=== PATIENT | female | born 1955 | race Caucasian/White ===

== ENCOUNTER 2018-01-10 07:30 | Inpatient (IN) | payer BC ==
--- NOTE | 2017-12-30 14:23 | HP ---
AMENDED REPORT NOW INCLUDES COSIGNER DESIGNATION - ESIGNED BEFORE ADJUSTMENT HISTORY AND PHYSICAL: DATE OF ADMISSION/SURGERY: 01/10/18 DATE OF OFFICE VISIT: 12/28/17 ATTENDING SURGEON: Kymberly Fallon MD * (DICTATED BY STEPHIE BLAIR) PROCEDURE: Bilateral total knee arthroplasties. CHIEF COMPLAINT: Bilateral knee pain. HISTORY OF PRESENT ILLNESS: Ms. Merida is a 62-year-old female with bilateral knee pain secondary to end-stage osteoarthritis. She has failed conservative treatment and elected to proceed with bilateral total knee arthroplasties, which is scheduled for 01/10/18. PAST MEDICAL HISTORY: Hypertension, diabetes, and high cholesterol. PAST SURGICAL HISTORY: Cholecystectomy, cataract removal, colonoscopy. CURRENT MEDICATIONS: 1. Meloxicam 15 mg daily. 2. Metformin 500 mg daily. 3. Lisinopril 10 mg daily. 4. Simvastatin 40 mg daily. 5. Multivitamin. 6. Fenofibrate 54 mg daily. ALLERGIES: None. FAMILY HISTORY: Diabetes, heart disease, and cancer. SOCIAL HISTORY: A 62-year-old female. She lives with her . She does not smoke or use drugs. Uses occasional alcohol. REVIEW OF SYSTEMS: A complete 14-point review of systems was reviewed with the patient, positive for diabetes. She denies a history of DVT, PE, hepatitis, HIV , or anesthesia problems. PHYSICAL EXAMINATION GENERAL: She is well developed, well nourished, in no acute distress. VITAL SIGNS: She stands 59 inches tall, weighs 155 pounds. Her blood pressure is 124/76, her heart rate is 72. HEENT: Normocephalic, atraumatic. NECK: Supple. No palpable lymph nodes. PULMONARY: Lungs are clear to auscultation bilaterally. CARDIAC: Regular rate and rhythm. Strong S1, S2. ABDOMEN: Soft, nontender, nondistended. MUSCULOSKELETAL: Bilateral lower extremities: The skin is intact. There are no open wounds or abrasions. There is moderate bilateral joint effusion. Her range of motion is 10 to 120 degrees of flexion with significant patellofemoral crepitus. There is varus deformity of the knees bilaterally, 2+ dorsalis pedis pulses, 5/5 lower extremity strength, and intact sensation. NEUROLOGIC: She is alert and oriented x3. ASSESSMENT AND PLAN: Ms. Merida is a 62-year-old female with bilateral knee pain secondary to end-stage osteoarthritis. She has failed conservative treatment and elected to proceed with bilateral total knee arthroplasties, which is scheduled for 01/10/[address] Fallon has discussed the risks and benefits of the surgery at today's visit and all of her questions were answered. She will follow up 2 weeks after the surgery. STEPHIE BLAIR [id number]/[facility] #: [id number] MTDD
--- NOTE | 2018-03-13 13:12 | HP ---
HISTORY AND PHYSICAL: DATE OF ADMISSION/SURGERY: 03/20/18 DATE OF OFFICE VISIT: 03/13/18 SURGEON: Kymberly Fallon MD * (DICTATED BY STEPHIE BLAIR) PROCEDURES: Bilateral total knee arthroplasties. CHIEF COMPLAINT: Bilateral knee pain. HISTORY OF PRESENT ILLNESS: Ms. Merida is a 63-year-old female with complaints of bilateral knee pain secondary to end-stage osteoarthritis. She has failed conservative treatment and elected to proceed with bilateral total knee arthroplasties. PAST MEDICAL HISTORY: Hypertension, diabetes and high cholesterol. PAST SURGICAL HISTORY: Cholecystectomy, cataract removal, colonoscopy. CURRENT MEDICATIONS: 1. Tramadol 50 mg as needed. 2. Meloxicam 15 mg daily. 3. Metformin. 4. Lisinopril. 5. Simvastatin. 6. Daily multivitamin. ALLERGIES: No known drug allergies. FAMILY HISTORY: Diabetes, heart disease and cancer. SOCIAL HISTORY: She is a 63-year-old female, lives with her . She does not smoke or use drugs. REVIEW OF SYSTEMS: A complete 14-point review of systems was reviewed with the patient. It was positive for diabetes. She denies a history of DVT, PE, hepatitis, HIV, or anesthesia problems. PHYSICAL EXAMINATION GENERAL: She is well developed, well nourished, in no acute distress. VITAL SIGNS: She stands 59 inches tall, weighs 155 pounds. Her blood pressure 98/60, her heart rate is 93. HEENT: Normocephalic, atraumatic. NECK: Supple. No palpable lymph nodes. PULMONARY: The lungs are clear to auscultation bilaterally. CARDIO: Regular rate and rhythm. Strong S1, S2. ABDOMEN: Soft, nontender, nondistended. NEUROLOGICAL: She is alert and oriented x3. MUSCULOSKELETAL: Bilateral lower extremities: The skin is intact. There are no open wounds or abrasions. There are moderate bilateral joint effusions. Range of motion of the knees is 10 to 120 degrees bilaterally with patellofemoral crepitus. There is varus alignment bilaterally and some tenderness over the medial joint lines of both knees. 2+ dorsalis pedis pulses , intact sensation. Her lower extremity muscle group strengths are intact at 5/ 5. ASSESSMENT AND PLAN: Ms. Merida is a 63-year-old female with end-stage osteoarthritis of the bilateral knees. She has elected to proceed with bilateral total knee arthroplasties. The surgery is scheduled for 03/20/[address] Fallon discussed the risks and benefits of the surgery at today's visit and all of her questions were answered. She will follow up with Dr. Fallon 2 weeks after the surgery. STEPHIE BLAIR [id number]/[facility] #: [id number] AYDEE
[2018-03-20] MEDS ORDERED: Tranexamic Acid 1,000 MG in NS 0.9% 50 ML* (outpatient use) IV SCH ×4
--- OUTSIDE RECORDS SUMMARY | 2018-03-20 05:55 | XMS REPORT ---
:1955 External Reference #:[id number] Author Organization [employer] Address [address] [place] [address] [place] [address] Phone [phone] Care Team Providers Name Role Phone Gael Lund MD Primary Care Physician Unavailable Payers Type Date Identification Numbers Payment Provider Subscriber Commercial Effective: Policy Number: [employer] Ambrose Peterson 2017 [id number] PayID: [id number] [address] [address] [place] [address] Problems Date Description Provider Status Onset: 07/29/2017 Localized, primary osteoarthritis Kymberly Fallon M.D. 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 needed for pain Meloxicam Active Tablets 15mg 30tabs 1 by M25.461 Kymberly 018 mouth Vasyl, every day M.D. Metformin HCL Active Unknown 000 Lisinopril Active Unknown 000 Simvastatin Active Unknown 000 Multivitamin Active Unknown Adult 000 Sulfamethoxazol Hx Tablets 800-160mg 6tabs take one Kymberly e/Trimethoprim 018 - tab by Vasyl DS mouth M.D. 018 twice a day for 3 days Cipro Hx Tablets 250mg 6tabs take one Kymberly 018 - tab twice Vasyl, a day for M.D. 018 three days Vital Signs Date Vital Result Comment 03/13/2018 Height 59 inches 4'11" Weight 160.00 lb Heart Rate 93 /min BP Systolic 98 mmHg BP Diastolic 60 mmHg Respiratory Rate 18 /min Body Temperature 98.2 F Pain Level 5 BMI (Body Mass Index) 32.3 kg/m2 12/28/2017 Height 59 inches 4'11" Weight 155.00 lb Heart Rate 72 /min BP Systolic 124 mmHg BP Diastolic 76 mmHg Respiratory Rate 16 /min Body Temperature 97.2 F Pain Level 5 BMI (Body Mass Index) 31.3 kg/m2 11/04/2017 Height 59 inches 4'11" Weight 162.00 lb Heart Rate 96 /min BP Systolic 144 mmHg BP Diastolic 70 mmHg BMI (Body Mass Index) 32.7 kg/m2 07/29/2017 Height 59 inches 4'11" Weight 168.00 lb Heart Rate 76 /min Respiratory Rate 14 /min Body Temperature 98.4 F Pain Level 4 BMI (Body Mass Index) 33.9 kg/m2 Results Test Date Test Result H/L Range Note Urinalysis Profile 12/28/2017 Urine Color Yellow Urine Appearance Cloudy Urine Specific Lyman 1.020 1.010-1.030 Urine pH 6.0 5-9 Urine Urobilinogen Negative Negative Urine Ketones Negative Negative Urine Protein Negative Negative Urine Leukocytes Trace Negative Urine Blood Negative Negative Urine Nitrite Positive Negative Urine Bilirubin Negative Negative Urine Glucose Negative Negative Urine White Blood Cell 1+(6-10/hpf) Absent Urine Red Blood Cell Absent Absent Urine Bacteria 1+ Absent Urine Squamous Epithelial Cell Present Absent CBC Auto Diff 12/28/2017 White Blood Count 7.6 10^3/uL 3.5-10.8 Red Blood Count 4.60 10^6/uL 4.00-5.40 Hemoglobin 14.1 g/dL 12.0-16.0 Hematocrit 40 % 35-47 Mean Corpuscular Volume 87 fL 80-97 Mean Corpuscular Hemoglobin 31 pg 27-31 Mean Corpuscular HGB Conc 35 g/dL 31-36 Red Cell Distribution Width 13 % 10.5-15 Platelet Count 254 10^3/uL 150-450 Mean Platelet Volume 8.8 um3 7.4-10.4 Abs Neutrophils 4.7 10^3/uL 1.5-7.7 Abs Lymphocytes 2.1 10^3/uL 1.0-4.8 Abs Monocytes 0.5 10^3/uL 0-0.8 Abs Eosinophils 0.2 10^3/uL 0-0.6 Abs Basophils 0.1 10^3/uL 0-0.2 Abs Nucleated RBC 0 10^3/uL Granulocyte % 61.8 % 38-83 Lymphocyte % 27.8 % 25-47 Monocyte % 7.1 % High 0-7 Eosinophil % 2.5 % 0-6 Basophil % 0.8 % 0-2 Nucleated Red Blood Cells % 0 Comp Metabolic Panel 12/28/2017 Sodium 142 mmol/L 135-145 Potassium 3.8 mmol/L 3.5-5.0 Chloride 105 mmol/L 101-111 Co2 Carbon Dioxide 29 mmol/L 22-32 Anion Gap 8 mmol/L 2-11 Glucose 122 mg/dL High 70-100 Blood Urea Nitrogen 15 mg/dL 6-24 Creatinine 0.55 mg/dL 0.51-0.95 BUN/Creatinine Ratio 27.3 High 8-20 Calcium 9.5 mg/dL 8.6-10.3 Total Protein 6.8 g/dL 6.4-8.9 Albumin 4.5 g/dL 3.2-5.2 Globulin 2.3 g/dL 2-4 Albumin/Globulin Ratio 2.0 1-3 Total Bilirubin 0.70 mg/dL 0.2-1.0 Alkaline Phosphatase 54 U/L 34-104 Alt 13 U/L 7-52 Ast 12 U/L Low 13-39 Egfr Non- 112.4 >60 Egfr 136.0 >60 1 Type & Screen 12/28/2017 Patient Blood Type O Positive Antibody Screen NEGATIVE Inr/Protime 12/28/2017 Inr 0.92 0.77-1.02 Laboratory test finding 12/28/2017 Partial Thrombo 28.4 seconds 26.0- 36.3 Time PTT Urine Culture And 12/28/2017 Urine Culture SEE RESULT BELOW 2 Sensitivities 1 Because ethnic data is not always readily available, this report includes an eGFR for both -Americans and non- Americans. The National Kidney Disease Education Program (NKDEP) does not endorse the use of the MDRD equation for patients that are not between the ages of 18 and 70, are , have extremes of body size, muscle mass, or nutritional status, or are non- or non-. According to the National Kidney Foundation, irrespective of diagnosis, the stage of the disease is based on the level of kidney function: Stage Description GFR(mL/min/1.73 m(2)) 1 Kidney damage with normal or decreased GFR 90 2 Kidney damage with mild decrease in GFR 60-89 3 Moderate decrease in GFR 30-59 4 Severe decrease in GFR 15-29 5 Kidney failure <15 (or dialysis) 2 SEE RESULT BELOW Name: GILMAR PETERSON : [address]: Kymberly Fallon MD Acct: [id number] Unit: [id number] AGE: 62 Location: [facility] Re12/28/17 SEX: F Status: REG REF SPEC: [id number] SANGEETA: 12/28/17-[address] [facility] [address]: Kymberly Fallon MD REQ: [id number] RECD: 12/28/17-0543 STATUS: BROCK POWELL DR: Gael Lund MD _ SOURCE: URINE SPDESC: ORDERED: Urine Culture QUERIES: Urine Source: Clean Catch Procedure Result Reported Site Urine Culture Final 12/30/17- 907 ML Organism 1 ESCHERICHIA COLI [place] Count >100,000 (Many) CFU/ML 1. ESCHERICHIA COLI M.I.C. RX --------- ------ Ampicillin <=2 S Cefazolin <=4 S Cefepime <=1 S Ceftriaxone <=1 S Ciprofloxacin <=0.25 S Gentamicin <=1 S Levofloxacin <=0.12 S Meropenem <=0.25 S Nitrofurantoin <=16 S Tetracycline <=1 S Pipercillin/Tazobactam <=4 S Trimethoprim/Sulfamethoxazole <=20 S Amoxicillin/Clavulanic Acid <=2 S Aztreonam <=1 S Contact the Microbiology Department for any additional antibiotic reporting. * [facility] - Main Lab . END OF REPORT DEPARTMENT OF PATHOLOGY, [address] [place] [address] Andrew Alicea M.D. Director [facility] # [id number] Procedures Description No Information Encounters Type Date Location Provider [facility] E/M Dx Office Visit 11/04/2017 1:45p [facility] Fallon M.D. 65130 M17.0 [facility] M25.561 M25.461 M25.562 M25.462 Office Visit 07/29/2017 1:00p [facility] Fallon M.D. 75999 M17.0 [facility] M25.561 M25.562 M25.461 M25.462 Plan of Care Future Appointment(s):03/31/2018 10:45 am - Kymberly Fallon M.D. at [facility]03/20/2018 7:30 am - STEPHIE Del Castillo at [facility]03/20/2018 7:30 am - Kymberly Fallon M.D. at [facility]03/13/2018 - Kymberly Fallon M.D.M17.0 Bilateral primary osteoarthritis of kneeFollow up:Follow up: 2 weeks after [id number] Pain in right kneeM25.562 Pain in left knee
[2018-03-20] MEDS ORDERED: Gabapentin CAP(*) 300 MG PO ONE (06:00)
[2018-03-20] MEDS ORDERED: celeCOXIB CAP* 200 MG PO ONE (06:00)
[2018-03-20] MEDS ORDERED: Acetaminophen TAB* 325 MG PO ONE (06:00)
[2018-03-20] MEDS ORDERED: Buffered Lidocaine 0.9% SYRIN* 5 ML/SYR SYRINGE INTRADERM ONE (06:00)
[2018-03-20] MEDS ORDERED: celeCOXIB CAP* 100 MG ONE (06:11)
[2018-03-20] MEDS ORDERED: Acetaminophen TAB* 325 MG ONE (06:12)
[2018-03-20] MEDS ORDERED: ceFAZolin 2 GM PREMIX in ORs 2 GM/50 ML BAG IVPB ONE (06:12)
[2018-03-20] MEDS ORDERED: Gabapentin CAP(*) 300 MG ONE (06:12)
[2018-03-20] MEDS ORDERED: fentaNYL* 50 MCG/ML 2 ML VIAL (100 MCG VIAL) ONE (07:08)
[2018-03-20] MEDS ORDERED: Midazolam* 1 MG/ML 2 ML VIAL (2 MG) ONE ×2 (07:08→08:13)
[2018-03-20] MEDS ORDERED: Bupivacaine 0.5% SDV PF* 30ML VIAL ONE ×2 (07:30→08:14)
[2018-03-20] MEDS ORDERED: Morphine PF AMP (0.5MG/ML)* 5 MG/10 ML AMP ONE (07:43)
[2018-03-20] MEDS ORDERED: diPHENhydraMINE IV* 50 MG/ML 1 ml VIAL (BENADRYL) ONE (08:14)
[2018-03-20] MEDS ORDERED: Bupivacaine-MPF SPINAL* 7.5 MG/ML - 2ML AMP ONE (08:14)
[2018-03-20] MEDS ORDERED: Famotidine IV* 10 MG/ML 2 ML (20 mg) ONE (08:14)
[2018-03-20] MEDS ORDERED: Dexamethasone IV* 4 MG/ML 1 ML (4 MG) ONE (08:14)
[2018-03-20] MEDS ORDERED: ROPIVACAINE 5 MG/ML 30 ML BTL (0.5%) ONE (08:14)
[2018-03-20] MEDS ORDERED: Propofol* 10 MG/ML 20 ML BTL IV PUSH ONE ×4 (08:25→11:05)
[2018-03-20] MEDS ORDERED: Hetastarch 6% in NS* 500 ML IV ONE (08:28)
[2018-03-20] MEDS ORDERED: EPHEDrine (Pressors)* 50 MG/ML VIAL ONE (10:43)
[2018-03-20] MEDS ORDERED: Naloxone* 0.4 MG/ML 1 ML VIAL IV PRN ×2 (10:48→10:49)
[2018-03-20] MEDS ORDERED: fentaNYL* 50 MCG/ML 2 ML VIAL (100 MCG VIAL) IV PRN (10:48)
[2018-03-20] MEDS ORDERED: Nalbuphine* 10 MG/ML 1 ML VIAL IV PRN (10:49)
[2018-03-20] MEDS ORDERED: diPHENhydraMINE IV* 50 MG/ML 1 ml VIAL (BENADRYL) IV PRN (10:49)
[2018-03-20] MEDS ORDERED: Scopolamine 1.5 mg* PATCH TRANSDERM PRN (10:49)
[2018-03-20] MEDS ORDERED: HYDROcodone/ACETAMIN 5-325 MG* 1 TAB PO PRN (10:49)
[2018-03-20] MEDS ORDERED: Ondansetron INJ* 2 MG/ML VIAL IV PRN (10:49)
[2018-03-20] MEDS ORDERED: DiMENhydriNATE IV* 50 MG/ML VIAL IV PUSH PRN (10:49)
[2018-03-20] MEDS ORDERED: Acetaminophen TAB* 325 MG PO PRN (10:49)
[2018-03-20] MEDS ORDERED: PROCHLORPERAZINE INJ 5 MG/ML 2 ML VIAL IV PRN (10:49)
[2018-03-20] MEDS ORDERED: Ondansetron INJ* 2 MG/ML VIAL ONE (11:40)
[2018-03-20] MEDS ORDERED: Bisacodyl SUPP* 10 MG SUPP PR PRN (11:56)
[2018-03-20] MEDS ORDERED: Magnesium Hydroxide LIQ* 30 ML UDC PO PRN (11:56)
[2018-03-20] MEDS ORDERED: Polyethylene Glycol 3350* 17 GM PACKET PO PRN (11:56)
--- NOTE | 2018-03-20 12:59 | RAD ---
HISTORY: s/p B/L TKA's COMPARISONS: July 29, 2017 VIEWS: 4 , frontal views of both knees, lateral views of the left knee and of the right knee FINDINGS: Right: BONE DENSITY: Normal. BONES: The patient is status post right knee arthroplasty. There is no hardware failure or osteolysis. JOINTS: The patient is status post right knee arthroplasty. ALIGNMENT: There is no dislocation. The alignment is anatomic. SOFT TISSUES: Unremarkable. Left: BONE DENSITY: Normal. BONES: The patient is status post left knee arthroplasty. There is no hardware failure or osteolysis. JOINTS: The patient is status post left knee arthroplasty ALIGNMENT: There is no dislocation. The alignment is anatomic. SOFT TISSUES: Unremarkable. OTHER FINDINGS: None. IMPRESSION: STATUS POST BILATERAL KNEE ARTHROPLASTY
--- NOTE | 2018-03-20 14:56 | PN ---
Progress Note - Progress Note Date of Service: 03/20/18 Note: Patient seen and examined at bedside POD 0 s/p bilateral total knee replacements with Dr Fallon earlier today. She is currently resting, feeling well with well controlled knee pain. Denies chest pain, shortness of breath, dizziness or nausea. Bilateral lower extremities with DF/PF intact, DP2+, capillary refill less than two seconds distally and sensation intact distally.
[2018-03-20] MEDS ORDERED: Dextrose 50% Syringe 50 ML* 25 GM/50 ML SYRINGE IV PUSH PRN (16:26)
[2018-03-20] MEDS: ceFAZolin 1 GM in Dextrose (*) 1 GM/50 ML BAG IVPB SCH (16:44)
[2018-03-20] MEDS ORDERED: Warfarin TAB(*) 6 MG PO ONE (17:00)
[2018-03-20] MEDS: HYDROcodone/ACETAMIN 5-325 MG* 1 TAB PO PRN ×2 (17:00→21:05)
[2018-03-20] MEDS: Atorvastatin* 20 MG TAB PO SCH (17:31)
[2018-03-20] MEDS: Insulin LISPRO* 1 UNITS UNIT SUBCUT SCH ×2 (17:31→21:08)
--- NOTE | 2018-03-20 20:09 | CONS ---
CC: Dr. Fallon * CONSULTATION REPORT: DATE OF CONSULT: 03/20/18 PATIENT OF: Dr. Kymberly Fallon. CONSULTED TO: Dr. Ani Fontenot. CHIEF COMPLAINT: Bilateral knee pain. REASON FOR CONSULT: Medical comanagement. HISTORY OF PRESENT ILLNESS: Ms. Merida is a 63-year-old female with past medical history significant for hypertension, type 2 diabetes mellitus, and hyperlipidemia, who has been evaluated by the [facility] in consideration for knee replacement. The patient has had bilateral knee osteoarthritis for a number of years, for which she had multiple conservative measures, which unfortunately failed secondary to end-stage osteoarthritis. She was found to be a good candidate for bilateral knee replacement for which she was scheduled on a later date. She was taken to the operating room earlier today where she had bilateral knee replacement by Dr. Fallon. She was discharged in a stable condition from the recovery room back to the surgical stay unit and we were asked to see the patient to manage her other medical issues. The patient at the time of consultation denies any chest pain, headache , shortness of breath, or abdominal pain. She had slight tachycardia, but denies any symptoms for which she was given a liter of lactated Ringer's bolus and another liter has been ordered shortly after this consult. She is tolerating clear liquid diet and denies any nausea, vomiting, or abdominal pain. PAST MEDICAL HISTORY: As mentioned above, significant for: 1. Hypertension. 2. Type 2 diabetes mellitus. 3. Hyperlipidemia. 4. Osteoarthritis. PAST SURGICAL HISTORY: Significant for: 1. Cholecystectomy. 2. Cataract extraction. 3. Bilateral knee arthroplasty today. CURRENT MEDICATIONS: Her medications at home include: 1. Fenofibrate 54 mg p.o. q.a.m. 2. Lisinopril 10 mg p.o. daily. 3. Metformin 500 mg p.o. daily. 4. Simvastatin 40 mg p.o. q.p.m. 5. Ultram 50 mg p.o. q.6 hours as needed for pain. 6. Tylenol 650 mg p.o. q.4 hours as needed for pain or fever. 7. Colace 100 mg p.o. b.i.d. ALLERGIES: She is allergic to SULFONAMIDE ANTIBIOTICS. FAMILY HISTORY: Reviewed and noncontributory. SOCIAL HISTORY: The patient is a nonsmoker, who drinks alcohol rarely. She lives at home with her , who is healthcare proxy and she wishes to be a full code. REVIEW OF SYSTEMS: See HPI. Otherwise, 12-point review of systems was reviewed and they were essentially negative. PHYSICAL EXAM: General: She is a pleasant middle-aged female, appears comfortable and in no acute distress or discomfort at the time of consultation. Vitals revealed temperature of 97.3, pulse of 110, blood pressure 120/64, respirations of 16 with O2 sat of 98% on 3 L oxygen. HEENT: Head is normocephalic, atraumatic. Sclerae anicteric. PERRLA. EOMs intact. Oropharynx is pink and moist. Neck: Supple. Trachea midline. No cervical adenopathy or thyromegaly. Lungs: Clear to auscultation bilaterally. Heart: Regular rate and rhythm. Normal S1 and S2 without rubs, murmurs, or gallops. Back: With normal curvature. No CVA tenderness. Breast Exam: Deferred at this time. Abdomen: Soft, nontender, and nondistended. There are no hernias, masses, or hepatosplenomegaly. Extremities: Without cyanosis, clubbing, or edema. Neurologic: She is awake, alert, and oriented x3. Tongue is midline and sensation is intact throughout. Rectal Exam: Deferred at this time. IMPRESSION: A 63-year-old female with past medical history significant for hypertension, diabetes mellitus, hyperlipidemia, who is postop day #0, status post bilateral knee arthroplasty, who was admitted under orthopedic services and we were asked for consultation regarding medical comanagement for the following. ASSESSMENT AND PLAN: 1. Bilateral knee arthroplasty. Management per ortho team. The patient appears to be comfortable and her pain is well controlled at this time. She is getting Lovenox bridging to warfarin with daily INR check per orthopedic team. 2. Hypertension. I will continue her lisinopril as prescribed. She appears to be normotensive at the present time. She has slight tachycardia without any symptoms that appear to be likely due to dehydration. I will give her another bolus of 1 L of LR and recheck her pulse later. Her I's and O's had been rechecked and she had estimated blood loss of approximately 500 cc in the operating room. We will await her CBC tomorrow to check for H and H level. 3. Diabetes mellitus. The patient is on metformin at home which I will hold for now and will be covered with lispro per sliding scale with glucose checks q.a.c. and q.h.s. 4. Hyperlipidemia. We will continue her statin therapy. 5. DVT prophylaxis. She is on Lovenox being bridged to Coumadin. 6. Code status. She wishes to be a full code. TIME SPENT: Approximately 45 minutes was spent on consultation of this patient , for which greater than 50% of this time taking history and performing physical exam. I went on and discussed the case with my attending, who agreed to plan of care and will follow accordingly. Thank you for this consultation. STEPHIE THOMSON [id number]/[facility] #: [id number] MTDD
[2018-03-20] MEDS: Docusate CAP* 100 MG PO SCH (21:06)
[2018-03-20] MEDS: Magnesium Hydroxide LIQ* 30 ML UDC PO SCH (21:33)
[2018-03-20] MEDS: Acetaminophen TAB* 325 MG PO SCH (21:33)
[2018-03-21] MEDS: ceFAZolin 1 GM in Dextrose (*) 1 GM/50 ML BAG IVPB SCH ×2 (00:05→08:42)
[2018-03-21] MEDS ORDERED: diPHENhydraMINE PO* 25 MG PO PRN (00:09)
[2018-03-21] MEDS ORDERED: oxyCODONE/Acetamin 5/325 MG* TAB PO PRN (00:09)
[2018-03-21] MEDS ORDERED: Morphine VIAL* 4 MG/ML VIAL (1 ml vial) IV PRN (00:10)
[2018-03-21] MEDS ORDERED: Ondansetron INJ* 2 MG/ML VIAL IV PRN (00:12)
[2018-03-21] MEDS ORDERED: Ondansetron TAB* 4 MG PO PRN (00:12)
[2018-03-21] MEDS: oxyCODONE/Acetamin 5/325 MG* TAB PO PRN ×5 (00:14→21:13)
[2018-03-21] MEDS: Acetaminophen TAB* 325 MG PO SCH ×3 (05:04→21:31)
[2018-03-21 05:26] LABS: Hematocrit 28 % (35-47); Hemoglobin 9.9 g/dl (12.0-16.0); Mean Platelet Volume 8.1 um3 (7.4-10.4); Platelet Count 189 10^3/ul (150-450)
[2018-03-21 05:30] LABS: INR 1.16 (0.77-1.02)
[2018-03-21 05:46] LABS: EGFR Non-African American 116.9 (>60)
[2018-03-21] MEDS: traMADol TAB* 50 MG PO PRN ×2 (06:09→13:15)
[2018-03-21] MEDS: oxyCODONE TAB* 5 MG TAB PO PRN ×4 (07:23→23:48)
--- NOTE | 2018-03-21 07:47 | PN ---
Progress Note - Progress Note Date of Service: 03/21/18 SOAP: Subjective: resting in bed. Pain controlled with current pain regimen. Denies SOB/calf pain Objective: Laboratory Last Values Hgb 9.9 g/dl (12.0-16.0) L 03/21/18 05:18 Hct 28 % (35-47) L 03/21/18 05:18 Plt Count 189 10^3/ul (150-450) 03/21/18 05:18 MPV 8.1 um3 (7.4-10.4) 03/21/18 05:18 INR (Anticoag Therapy) 1.16 (0.77-1.02) H 03/21/18 05:18 Sodium 137 mmol/L (135-145) 03/21/18 05:18 Potassium 3.8 mmol/L (3.5-5.0) 03/21/18 05:18 Chloride 101 mmol/L (101-111) 03/21/18 05:18 Carbon Dioxide 32 mmol/L (22-32) 03/21/18 05:18 Anion Gap 4 mmol/L (2-11) 03/21/18 05:18 BUN 14 mg/dL (6-24) 03/21/18 05:18 Creatinine 0.53 mg/dL (0.51-0.95) 03/21/18 05:18 Est GFR ( Amer) 141.4 (>60) 03/21/18 05:18 Est GFR (Non-Af Amer) 116.9 (>60) 03/21/18 05:18 BUN/Creatinine Ratio 26.4 (8-20) H 03/21/18 05:18 Glucose 152 mg/dL (70-100) H 03/21/18 05:18 POC Glucose (mg/dL) 151 mg/dL (70-100) H 03/20/18 20:59 Calcium 8.1 mg/dL (8.6-10.3) L 03/21/18 05:18 Vital Signs Temp Pulse Resp BP Pulse Ox 98.5 F 107 18 121/62 93 03/21/18 03:28 03/21/18 03:28 03/21/18 07:23 03/21/18 03:28 03/21/18 03:28 incision: c/d/i PE: able to dorsi flex/plantar flex/ 2+DP pulses/ intact sensation B/L LE Assessment: s/p B/L TKA's; POD #1 Plan: 1) PT/OT- WBAT 2) Ancef for 24 hours post-op 3) Coumadin/Lovenox/SCD's for DVT prophylaxis 4) Hospitalist co-managing
[2018-03-21] MEDS: Insulin LISPRO* 1 UNITS UNIT SUBCUT SCH ×4 (08:59→21:07)
[2018-03-21] MEDS: Lisinopril TAB* 10 MG PO SCH (09:00)
[2018-03-21] MEDS: Docusate CAP* 100 MG PO SCH ×2 (09:00→19:33)
[2018-03-21] MEDS: Magnesium Hydroxide LIQ* 30 ML UDC PO SCH ×2 (09:00→19:33)
[2018-03-21] MEDS ORDERED: metFORMIN* 500 MG TAB PO SCH (09:00)
--- NOTE | 2018-03-21 09:05 | PN ---
Subjective Date of Service: 03/21/18 Interval History: Pt with significant pain in bilateral knees, however is improved with medication administration. Endorses nausea and vomiting. Denies shortness of breath, chest pain, palpitation, dizziness, numbness or tingling in extremities. Did report transient tingling just below knee cap, however has resolved. Objective Active Medications: Acetaminophen (Tylenol Tab*) 975 mg PO Q8HR [facility] Last Admin: 03/21/18 05:04 Dose: Not Given Atorvastatin Calcium (Lipitor*) 20 mg PO QPM [facility] Last Admin: 03/20/18 17:31 Dose: 20 mg Bisacodyl (Dulcolax Supp*) 10 mg MI DAILY PRN PRN Reason: constipation Cyclobenzaprine HCl (Flexeril Tab*) 10 mg PO TID PRN PRN Reason: SPASMS Dextrose (D50w Syringe 50 Ml*) 12.5 gm IV PUSH .FOR FS < 60 - SS PRN PRN Reason: FS < 60 Diphenhydramine HCl (Benadryl Po*) 25 mg PO Q6H PRN PRN Reason: itching Docusate Sodium (Colace Cap*) 100 mg PO BID [facility] Last Admin: 03/20/18 21:06 Dose: 100 mg Enoxaparin Sodium (Lovenox(*)) 40 mg SUBCUT Q24H [facility] Lactated Ringer's (Lactated Ringers 1000 Ml Bag*) 1,000 mls @ 100 mls/hr IV PER RATE [facility] Last Admin: 03/21/18 08:41 Dose: 100 mls/hr Insulin Human Lispro (Humalog*) 0 units SUBCUT [facility]; Protocol Last Admin: 03/20/18 21:08 Dose: 3 units Lactulose (Lactulose*) 30 ml PO Q6H PRN PRN Reason: constipation Lisinopril (Prinivil Tab*) 10 mg PO QAM [facility] Magnesium Hydroxide (Milk Of Magnesia Liq*) 30 ml PO BID [facility] Last Admin: 03/20/18 21:33 Dose: 30 ml Magnesium Hydroxide (Milk Of Magnesia Liq*) 30 ml PO Q6H PRN PRN Reason: constipation Morphine Sulfate (Morphine Vial*) 2 mg IV Q2H PRN PRN Reason: PAIN - SEVERE Naloxone HCl (Narcan*) 0.08 mg IV Q2M PRN PRN Reason: severe induced resp depression Stop: 03/21/18 10:48 Ondansetron HCl (Zofran Inj*) 4 mg IV Q6H PRN PRN Reason: nausea Ondansetron HCl (Zofran Tab*) 4 mg PO Q6H PRN PRN Reason: NAUSEA Oxycodone HCl (Roxycodone Tab*) 10 mg PO Q4H PRN PRN Reason: SEVERE PAIN Last Admin: 03/21/18 07:23 Dose: 10 mg Oxycodone/Acetaminophen (Percocet 5/325 Tab*) 1 tab PO Q4H PRN PRN Reason: PAIN Oxycodone/Acetaminophen (Percocet 5/325 Tab*) 2 tab PO Q4H PRN PRN Reason: PAIN Last Admin: 03/21/18 05:22 Dose: 2 tab Pharmacy Profile Note (Scopolamine Patch Remove*) 1 note PATCH OFF .AFTER 72 HOURS PRN PRN Reason: nausea Pharmacy Profile Note (Coumadin Daily Reminder*) 1 note FOLLOW UP 1700 SMITH Polyethylene Glycol/Electrolytes (Miralax*) 17 gm PO DAILY PRN PRN Reason: Constipation Scopolamine (Transderm-Scop 1.5 Mg Patch*) 1 patch TRANSDERM Q72H PRN PRN Reason: nausea Tramadol HCl (Ultram*) 50 mg PO Q6H PRN PRN Reason: PAIN Last Admin: 03/21/18 06:09 Dose: 50 mg Warfarin Sodium (Coumadin Tab(*)) 6 mg PO ONCE@1700 SMITH; Protocol Stop: 03/21/18 17:01 Vital Signs - 8 hr 03/21/18 03/21/18 03/21/18 02:14 03:28 05:22 Temperature 98.5 F Pulse Rate 107 Respiratory 20 16 18 Rate Blood Pressure 121/62 (mmHg) O2 Sat by Pulse 93 Oximetry 03/21/18 03/21/18 03/21/18 06:09 07:23 07:30 Temperature 98.2 F Pulse Rate 110 Respiratory 18 18 16 Rate Blood Pressure 135/65 (mmHg) O2 Sat by Pulse 97 Oximetry 03/21/18 03/21/18 08:00 08:58 Temperature Pulse Rate Respiratory 16 18 Rate Blood Pressure (mmHg) O2 Sat by Pulse 97 Oximetry Oxygen Devices in Use Now: None, Nasal Cannula Eyes: No Scleral Icterus Ears/Nose/Mouth/Throat: NL Teeth, Lips, Gums, Mucous Membranes Moist Neck: NL Appearance and Movements; NL JVP Respiratory: Symmetrical Chest Expansion and Respiratory Effort, Clear to Auscultation Cardiovascular: NL Sounds; No Murmurs; No JVD, No Edema, - - Tachycardic to low 100s. Regular rhythm Abdominal: NL Sounds; No Tenderness; No Distention Lymphatic: No Cervical Adenopathy Skin: No Rash or Ulcers Neurological: Alert and Oriented x 3, NL Sensation, NL Muscle Strength and Tone , - - 2+ DP and PT pulses bilaterally. Dorsiflexion/plantar fexion intact Nutrition: Taking PO's Result Diagrams: 03/21/18 05:18 03/21/18 05:18 Assess/Plan/Problems-Billing Assessment: Ms Merida is a 63 year old female with a PMH HTN, DM, HLD s/p bilateral knee replacement with Dr. Fallon yesterday. Hospitalist team consulting. - Patient Problems (1) History of total bilateral knee replacement Current Visit: Yes Status: Acute Code(s): Z96.653 - PRESENCE OF ARTIFICIAL KNEE JOINT, BILATERAL SNOMED Code(s): 6372508647668 Comment: - Plan per ortho, primary team - Continue pain control with PRN percocet, roxycodone, ultram or morophine - Continue bowel regimen - Continue trending H/H: 9 today - Pt has been mildly tachcardic since her procedure yesterday, likely secondary to pain and volume loss (surgical + vomiting). Pt is taking PO and received multiple liters of fluid yesterday, but continue to support with LR @ 125mL/hr - Anticoagulation with coumadin with lovenox bridge (2) Hypertension Current Visit: Yes Status: Acute Code(s): I10 - ESSENTIAL (PRIMARY) HYPERTENSION SNOMED Code(s): 44787886 Comment: - BP well controlled on lisinopril 10mg daily. Last BP 135/65. (3) Diabetes Current Visit: Yes Status: Acute Code(s): E11.9 - TYPE 2 DIABETES MELLITUS WITHOUT COMPLICATIONS SNOMED Code(s): 21490497 Comment: - Glucose < 180. Continue sliding scale lispro. Can consider restarting home metformin when nausea subsided and able to hold POs. (4) DVT prophylaxis Current Visit: Yes Status: Acute Code(s): VMF5337 - SNOMED Code(s): 384395989 Comment: - Coumadin with lovenox bridge (5) Full code status Current Visit: Yes Status: Acute Code(s): Z78.9 - OTHER SPECIFIED HEALTH STATUS SNOMED Code(s): 378562038 Status and Disposition: Plan per primary team, ortho Attending: Ani Fontenot
--- NOTE | 2018-03-21 13:00 | OP ---
DATE OF OPERATION: 03/20/18 - ROOM #343 DATE OF : 57 SURGEON: Kymberly Fallon MD. MASK INSPECTOR: STEPHIE Arana. Ms. Dover did help throughout the procedure with preparation of the leg, wound retraction, manipulation of the knee, and wound closure. ANESTHESIOLOGIST: Dr. Schaffer. ANESTHESIA: Spinal. PRE-OP DIAGNOSIS: Severe end-stage degenerative osteoarthritis of the bilateral knee joints. POST-OP DIAGNOSIS: Severe end-stage degenerative osteoarthritis of the bilateral knee joints. OPERATIVE PROCEDURE: Bilateral total knee arthroplasty. COMPLICATIONS: None. ESTIMATED BLOOD LOSS: 400 cc. SPECIMEN: Bone and cartilage from each knee joint was sent to pathology. TOURNIQUET TIMES: Right knee tourniquet time 46 minutes, left knee tourniquet time 45 minutes. HARDWARE USED: Cemented Arellano [employer]hew total knee arthroplasty hardware. For the right knee, a right 4 narrow Oxinium posterior stabilized Legion femoral component. For the tibia over the right, size 3, Keily II tibial base plate. For the insert, an 11 mm posterior stabilized articular insert, size 3-4 and for the patella, a 29 3-peg all poly patella with 7.5 thickness. For the left knee joint, 2 packages of Simplex bone cement. Posterior Oxinium Legion femoral component. For the tibia, left size 3 tibial base plate, Keily II. For the insert, an 11 mm posterior stabilized articular insert, size 3-4. For the patella, 29 3-peg all poly patella with 7.5 thickness. BRIEF HISTORY/INDICATIONS: Ms. Merida is a 63-year-old female with years of increasingly severe bilateral knee pain. Due to continued pain and decreased quality of life, she elected to undergo bilateral total knee arthroplasty. She failed conservative treatment with antiinflammatories, pain medications, intraarticular injections, and physical therapy. Radiographs showed bone-on- bone arthritis bilaterally. Informed consent was obtained from the patient. She understood the risks of the procedure included, but were not limited to bleeding, infection, damage to nearby structures, continued pain, need for further surgery, bleeding, infection, damage to nearby structures, continued pain, need for further surgery, intraoperative fracture, nerve palsy, hardware failure or loosening, knee stiffness, loss of motion, stroke, heart attack, blood clot, and . She wished to proceed. The patient understood the risk of bilateral total knee arthroplasty with increased risk of infection, blood clot, and knee stiffness. She wished to proceed. INTRAOPERATIVE FINDINGS: Intraoperatively, the patient was noted to have complete end-stage arthritis with full thickness loss of cartilage in the medial and patellofemoral compartments of both knees. Left knee had more of a hypoplastic lateral femoral condyle than the right. Both knees showed significant soft tissue laxity. The patient had recurvatum of both knees before the case. DESCRIPTION OF PROCEDURE: Ms. Merida was identified in the preanesthesia unit. Her bilateral knees were marked as the correct operative site. Informed consent was signed and placed in the chart. The patient was taken to the operating room, placed under spinal anesthesia. A Hopkins catheter was placed. Tourniquet was placed on each side. The bilateral lower extremities were prepped and draped in the usual sterile fashion. Preop time-out was made to correctly identify the patient, side and site. Appropriate perioperative antibiotics were given within 1 hour of incision. The right knee was covered with a half drape and attention was turned to the left knee first. Left knee tourniquet was inflated. A midline incision of 12 cm was made with a 10 blade and carried down to the extensor mechanism. New 10 blade was used to make a standard medial parapatellar arthrotomy. Patella was subluxed laterally. Electrocautery was used to subperiosteally elevate the soft tissue off the superomedial tibia to the mid sagittal plane. The knee was flexed up. The anterior horn of the lateral meniscus and ACL were sharply released. A drill was used to enter the distal femur. Intramedullary distal femoral cutting guide was pinned on the distal femur. Oscillating saw was used to make the distal femoral cut. Next, the external rotation guide was pinned on the distal femur. The distal femur was sized to a size 4. The size 4 multi- cutting jig was pinned on the distal femur. Oscillating saw was used to make the appropriate 4 chamfer cuts. The PCL was completely released and the tibia was subluxed anteriorly. Extramedullary tibial cutting guide was pinned on the proximal tibia. Oscillating saw was used to make the proximal tibial cut perpendicular to the mechanical axis of the tibia. The bone was carefully removed. The knee was brought out into full extension. Medial and lateral ligaments were well balanced. Spacer block had good fit with the knee in full extension. Flexion and extension gaps were well balanced. The knee was flexed up. Lamina spreaders placed both medially and laterally. Any remaining meniscus was carefully removed using electrocautery. Curved osteotome was used to remove any posterior osteophytes. Tibial tray and drop carlito were placed and once again confirmed a satisfactory tibial cut. A size 4 left narrow femoral trial was impacted on to the distal femur and had excellent fit. The box for the posterior stabilized implant was prepared using a reamer and box cut osteotome. Size 3 tibial tray trial with an 11 mm insert trial was placed and the knee was taken through a range of motion. The knee had full extension to 130 degrees of flexion with good patellofemoral tracking. Patella was everted. A 7 mm of patellar bone and cartilage was carefully removed using an oscillating saw. Patella was sized to a size 29. Three peg holes were drilled through the size 29 guide. The 29 trial patella with 7.5 thickness was placed and the knee was taken through a range of motion. The knee had satisfactory patellofemoral tracking. All trials were carefully removed. The tibia was subluxed anteriorly and sized to a size 3. Proximal tibia was prepared using a size 3 keel punch. All bony cut surfaces were copiously irrigated with sterile saline and dried. The final implants were cemented into place, starting with the tibia, followed by the femur and last the patella. The 11 mm insert trial was placed while the knee was brought out into full extension. Tourniquet was turned down at 45 minutes. The knee was copiously irrigated with sterile saline. Electrocautery was used to obtain meticulous hemostasis. The cement was allowed to fully cure. Once the cement had fully cured, the insert trial was removed. Any excess cement was removed from around the capsule and hardware. Final insert chosen was an 11 mm posterior stabilized articular insert size 3-4. This was locked into position on the tibial tray. Stability of the insert was checked and rechecked and noted to be stable. The extensor mechanism was closed using interrupted #1 Vicryl. The rest of the incision was closed in a layered fashion using 0 and 2- 0 Vicryl. Skin was closed using running 3-0 nylon suture. Sterile Xeroform, 4x4's, and Webril were used to cover the incision. Nilay wrap was placed over this. A was used to cover the knee. Attention was turned to the right knee. Right knee tourniquet was inflated and a 12 cm midline incision was made with a 10 blade and carried down to the extensor mechanism. New 10 blade was used to make a standard medial parapatellar arthrotomy. The patella was subluxed laterally. Electrocautery was used to subperiosteally elevate the soft tissue off the superomedial tibia to the mid sagittal plane. The knee was flexed up. The anterior horn of the lateral meniscus and ACL were sharply . Intramedullary distal femoral cutting guide was pinned into position. Oscillating saw was used to make the distal femoral cut. The external rotation guide was pinned on the distal femur. The distal femur was sized to a size 4. The size 4 multi-cutting jig was pinned on the distal femur. Oscillating saw was used to make the appropriate 4 chamfer cuts. The PCL was completely released. Tibia was subluxed anteriorly. Extramedullary tibial cutting guide was pinned on the proximal tibia. Oscillating saw was used to make the proximal cut perpendicular to the mechanical axis of the tibia. The bone was carefully removed. The knee was brought out into full extension. Spacer block had good fit with the knee in full extension. Medial and lateral ligaments were well balanced. Flexion and extension gaps were well balanced. The knee was flexed up. Lamina spreaders placed both medially and laterally. Any remaining meniscus was carefully removed using electrocautery. Curved osteotome was used to remove any posterior osteophytes. Tibial tray and drop carlito were placed and once again confirmed a satisfactory tibial cut. A right size 4 narrow femoral trial was impacted on to the distal femur. This had excellent fit. The box for the posterior stabilized implant was prepared using a reamer and box cut osteotome. Size 3 tibial tray trial with an 11 mm insert trial was placed. The knee was taken through a range of motion. The knee had full extension to 130 degrees of flexion. There was satisfactory patellofemoral tracking. The patella was everted. A 7 mm of patellar bone and cartilage was carefully removed using an oscillating saw. Patella was sized to a size 29. Three peg holes were drilled through the size 29 guide. The 29 trial patella with 7.5 thickness was placed and the knee was taken through a range of motion. There was satisfactory patellofemoral tracking. All trials were carefully removed. Tibia was subluxed anteriorly and sized to a size 3. Proximal tibia was prepared using a size 3 keel punch. All bony cut surfaces were copiously irrigated with sterile saline and dried. The final implants were cemented into place, starting with the tibia, followed by the femur and last the patella. The 11 mm insert trial was placed and the knee was brought out into full extension. Tourniquet was turned down at 46 minutes. Electrocautery was used to obtain meticulous hemostasis. The knee was copiously irrigated with sterile saline. Once the cement had fully cured, the insert trial was removed. Any excess cement was removed from around the capsule and hardware. Final insert chosen was an 11 mm posterior stabilized articular insert of size 3-4. This was locked into position on the tibial tray. Stability of the insert was checked and rechecked and noted to be stable. The extensor mechanism was closed using interrupted #1 Vicryl. The rest of the incision was closed in a layered fashion using 0 and 2-0 Vicryl. Skin was closed using running 3-0 nylon suture. Sterile Xeroform, 4x4's, and Webril were used to cover the incision. Nilay wrap and cold pack were placed over this. A cold pack was placed on the left knee. All the drapes were carefully removed. The patient's anesthesia was reversed without difficulty. She was taken to the PACU in stable condition. Intended weightbearing will be weightbearing as tolerated. Intended DVT prophylaxis will be Coumadin with a Lovenox bridge. [id number]/[facility] #: [id number] AYDEE
[2018-03-21] MEDS: Enoxaparin(*) 40 MG/0.4 ML SYR SUBCUT SCH (13:14)
[2018-03-21] MEDS: Cyclobenzaprine TAB* 10 MG PO PRN (15:05)
[2018-03-21] MEDS: Atorvastatin* 20 MG TAB PO SCH (16:57)
[2018-03-21] MEDS ORDERED: Warfarin TAB(*) 6 MG PO SCH (17:00)
[2018-03-22] MEDS: oxyCODONE/Acetamin 5/325 MG* TAB PO PRN ×4 (01:50→21:17)
[2018-03-22] MEDS: Acetaminophen TAB* 325 MG PO SCH ×3 (04:33→21:28)
[2018-03-22] MEDS: oxyCODONE TAB* 5 MG TAB PO PRN ×2 (05:23→10:42)
[2018-03-22 05:51] LABS: Hematocrit 28 % (35-47); Hemoglobin 9.8 g/dl (12.0-16.0); Platelet Count 217 10^3/ul (150-450)
[2018-03-22 05:55] LABS: INR 1.85 (0.77-1.02)
[2018-03-22] MEDS ORDERED: Iohexol 350* (CONTRAST) 500 ML MDV IV SCH (07:38)
[2018-03-22] MEDS ORDERED: Iodixanol* (CONTRAST) 320 MG/ML 100 ML SDV IV SCH (09:27)
--- NOTE | 2018-03-22 09:46 | RAD ---
HISTORY: tachy and desat postop btka COMPARISONS: None TECHNIQUE: Multiple contiguous axial CT scans of the chest were obtained after the administration of nonionic intravenous contrast, timed to the pulmonary arterial phase of contrast enhancement.. Coronal and sagittal multiplanar reformations are also submitted for review. FINDINGS: Evaluation is limited due to suboptimal contrast opacification. The attenuation of the main pulmonary artery is between 200-250 Hounsfield units, which is considered borderline, but diagnostic, for the detection of pulmonary embolism. NECK AND THYROID: The lower neck and thyroid are unremarkable. CHEST WALL: There is no lower cervical, axillary, or supraclavicular lymphadenopathy by size criteria. HEART AND PERICARDIUM: The heart is unremarkable. AORTA AND PULMONARY VASCULATURE: There is no pulmonary arterial filling defect to suggest pulmonary embolism. There is no linear filling defect within the aorta to suggest aortic dissection. MEDIASTINUM: There is no mediastinal lymphadenopathy by size criteria. OLMAN: There is no hilar lymphadenopathy by size criteria. AIRWAY AND ESOPHAGUS: The airway is unremarkable, without endobronchial filling defect. The esophagus is grossly normal. LUNG PARENCHYMA: The lungs are clear. PLEURA: No pleural abnormalities are noted. UPPER ABDOMEN: There is fatty infiltration of the liver. BONES AND SOFT TISSUES: No bone or soft tissue abnormalities are noted. OTHER: None. IMPRESSION: NO PULMONARY ARTERIAL FILLING DEFECT TO SUGGEST PULMONARY EMBOLISM.
[2018-03-22] MEDS: Magnesium Hydroxide LIQ* 30 ML UDC PO SCH ×2 (10:40→21:18)
[2018-03-22] MEDS: Docusate CAP* 100 MG PO SCH ×2 (10:40→21:17)
[2018-03-22] MEDS: Lisinopril TAB* 10 MG PO SCH (10:40)
[2018-03-22] MEDS: Insulin LISPRO* 1 UNITS UNIT SUBCUT SCH ×4 (10:47→21:40)
--- NOTE | 2018-03-22 11:02 | PN ---
Subjective Date of Service: 03/22/18 Interval History: Pain improved since yesterday. Well controlled on current pain regimen. Pt had episode of desaturation overnight but does not remember being short or having chest pain. Nausea has resolved as well. This morning denies chest pain, shortness of breath, headache, dizziness, N/V/D, numbness or tingling in extremities. Objective Active Medications: Acetaminophen (Tylenol Tab*) 975 mg PO Q8HR [facility] Last Admin: 03/22/18 04:33 Dose: Not Given Atorvastatin Calcium (Lipitor*) 20 mg PO QPM [facility] Last Admin: 03/21/18 16:57 Dose: 20 mg Bisacodyl (Dulcolax Supp*) [address] DAILY PRN PRN Reason: constipation Cyclobenzaprine HCl (Flexeril Tab*) 10 mg PO TID PRN PRN Reason: SPASMS Last Admin: 03/21/18 15:05 Dose: 10 mg Dextrose (D50w Syringe 50 Ml*) 12.5 gm IV PUSH .FOR FS < 60 - SS PRN PRN Reason: FS < 60 Diphenhydramine HCl (Benadryl Po*) 25 mg PO Q6H PRN PRN Reason: itching Docusate Sodium (Colace Cap*) 100 mg PO BID [facility] Last Admin: 03/22/18 10:40 Dose: 100 mg Enoxaparin Sodium (Lovenox(*)) 40 mg SUBCUT Q24H [facility] Last Admin: 03/21/18 13:14 Dose: 40 mg Lactated Ringer's (Lactated Ringers 1000 Ml Bag*) 1,000 mls @ 100 mls/hr IV PER RATE [facility] Last Admin: 03/21/18 08:41 Dose: 100 mls/hr Insulin Human Lispro (Humalog*) 0 units SUBCUT ACHS [facility]; Protocol Last Admin: 03/22/18 10:47 Dose: Not Given Iodixanol (Visipaque* 320 (Contrast)) 72 ml IV ONCE [facility] Stop: 03/24/18 09:26 Last Admin: 03/22/18 09:28 Dose: 72 ml Lactulose (Lactulose*) 30 ml PO Q6H PRN PRN Reason: constipation Lisinopril (Prinivil Tab*) 10 mg PO QAM [facility] Last Admin: 03/22/18 10:40 Dose: 10 mg Magnesium Hydroxide (Milk Of Magnesia Liq*) 30 ml PO BID [facility] Last Admin: 03/22/18 10:40 Dose: 30 ml Magnesium Hydroxide (Milk Of Magnesia Liq*) 30 ml PO Q6H PRN PRN Reason: constipation Metoprolol Tartrate (Lopressor Tab*) 12.5 mg PO BID [facility] Morphine Sulfate (Morphine Vial*) 2 mg IV Q2H PRN PRN Reason: PAIN - SEVERE Last Admin: 03/21/18 11:59 Dose: 2 mg Ondansetron HCl (Zofran Inj*) 4 mg IV Q6H PRN PRN Reason: nausea Last Admin: 03/21/18 09:09 Dose: 4 mg Ondansetron HCl (Zofran Tab*) 4 mg PO Q6H PRN PRN Reason: NAUSEA Oxycodone HCl (Roxycodone Tab*) 10 mg PO Q4H PRN PRN Reason: SEVERE PAIN Last Admin: 03/22/18 10:42 Dose: 10 mg Oxycodone/Acetaminophen (Percocet 5/325 Tab*) 1 tab PO Q4H PRN PRN Reason: PAIN Oxycodone/Acetaminophen (Percocet 5/325 Tab*) 2 tab PO Q4H PRN PRN Reason: PAIN Last Admin: 03/22/18 07:59 Dose: 2 tab Pharmacy Profile Note (Scopolamine Patch Remove*) 1 note PATCH OFF .AFTER 72 HOURS PRN PRN Reason: nausea Pharmacy Profile Note (Coumadin Daily Reminder*) 1 note FOLLOW UP 1700 [facility] Last Admin: 03/21/18 16:35 Dose: 1 note Polyethylene Glycol/Electrolytes (Miralax*) 17 gm PO DAILY PRN PRN Reason: Constipation Scopolamine (Transderm-Scop 1.5 Mg Patch*) 1 patch TRANSDERM Q72H PRN PRN Reason: nausea Tramadol HCl (Ultram*) 50 mg PO Q6H PRN PRN Reason: PAIN Last Admin: 03/21/18 13:15 Dose: 50 mg Vital Signs - 8 hr 03/22/18 03/22/18 03/22/18 03:20 04:32 05:23 Temperature 98.7 F Pulse Rate 111 Respiratory 16 14 12 Rate Blood Pressure 117/63 (mmHg) O2 Sat by Pulse 98 Oximetry 10/03/22/18 03/22/18 07:42 07:59 10:42 Temperature 98.6 F Pulse Rate 121 Respiratory 16 16 18 Rate Blood Pressure 131/66 (mmHg) O2 Sat by Pulse 93 Oximetry Oxygen Devices in Use Now: None Eyes: No Scleral Icterus, PERRLA Ears/Nose/Mouth/Throat: NL Teeth, Lips, Gums, Clear Oropharnyx, Mucous Membranes Moist Neck: NL Appearance and Movements; NL JVP, Trachea Midline Respiratory: Symmetrical Chest Expansion and Respiratory Effort Cardiovascular: NL Sounds; No Murmurs; No JVD, No Edema, - - Tachycardic. Regular rhythm Abdominal: NL Sounds; No Tenderness; No Distention Extremities: No Clubbing, Cyanosis Skin: No Rash or Ulcers Neurological: Alert and Oriented x 3, NL Sensation, NL Muscle Strength and Tone , - - Able to dorsiflex and plantarflex. 2+ DP pulses bilaterally. Lines/Tubes/Other Access: Clean, Dry and Intact Peripheral IV Nutrition: Taking PO's Result Diagrams: 03/22/18 05:30 03/21/18 05:18 Assess/Plan/Problems-Billing Assessment: Ms Merida is a 63 year old female with a PMH HTN, DM, HLD s/p bilateral knee replacement with Dr. Fallon. POD 2. Hospitalist team consulting. - Patient Problems (1) History of total bilateral knee replacement Current Visit: Yes Status: Acute Code(s): Z96.653 - PRESENCE OF ARTIFICIAL KNEE JOINT, BILATERAL SNOMED Code(s): 0386347617565 Comment: - Plan per ortho, primary team - Continue pain control with PRN percocet, roxycodone, ultram or morophine - Continue bowel regimen - H/H stable. Continue trendin today - Anticoagulation with coumadin with lovenox bridge (2) Tachycardia Current Visit: Yes Status: Acute Code(s): R00.0 - TACHYCARDIA, UNSPECIFIED SNOMED Code(s): 0063383 Comment: - Pt has been tachcardic since her procedure, likely secondary to pain and volume loss (surgical + vomiting). Pt is taking PO and received multiple liters of fluid. HR peaked in 140s, but came back down to lower 100s with pain medication and fluids. EKG showed sinus tach. Had episode of desaturation overnight, so CTA was done today to r/o PE. CTA did not show any evidence of PE. Added metoprolol 12.5mg BID for rate control. (3) Hypertension Current Visit: Yes Status: Acute Code(s): I10 - ESSENTIAL (PRIMARY) HYPERTENSION SNOMED Code(s): 97760734 Comment: - BP well controlled on lisinopril 10mg daily. Last BP 131/66 (4) Diabetes Current Visit: Yes Status: Acute Code(s): E11.9 - TYPE 2 DIABETES MELLITUS WITHOUT COMPLICATIONS SNOMED Code(s): 95275669 Comment: - Glucose < 180. Continue sliding scale lispro. Can consider restarting home metformin when nausea subsided and able to hold POs. (5) DVT prophylaxis Current Visit: Yes Status: Acute Code(s): REV3369 - SNOMED Code(s): 158404777 Comment: - Coumadin with lovenox bridge (6) Full code status Current Visit: Yes Status: Acute Code(s): Z78.9 - OTHER SPECIFIED HEALTH STATUS SNOMED Code(s): 445237200 Status and Disposition: Plan per primary team, ortho
[2018-03-22] MEDS: Metoprolol Tartrate TAB* 25 MG PO SCH ×2 (12:12→21:18)
[2018-03-22] MEDS: Enoxaparin(*) 40 MG/0.4 ML SYR SUBCUT SCH (12:16)
--- NOTE | 2018-03-22 15:28 | PN ---
Progress Note - Progress Note Date of Service: 03/22/18 SOAP: Subjective: []Patient seen and examined OOB in chair. She is feeling very well without feeling of CP, SOB, dizziness, nausea, lightheadedness or irregular heartbeats. Her knee pain is relatively well controlled. Objective: []General: Well appearing, NAD Bilateral dressings changed. Incisions are CDI without erythema or discharge. Thighs are soft. DF/PF intact. DP2+, sensation intact distally. Calves are supple and nontender without erythema, edema or palpable cords. Assessment: []Bilateral total knee arthroplasty tachycardia Plan: []WBAT PT/OT tachycardia: appreciate medicine input. CTA negative for PE. Medicine has Added metoprolol 12.5mg BID for rate control. Lovenox, Coumadin 4 mg today Vital Signs Temp 98.6 F 03/22/18 07:42 Pulse 121 03/22/18 07:42 Resp 18 03/22/18 14:03 BP 131/66 03/22/18 07:42 Pulse Ox 93 03/22/18 07:42 Intake & Output 03/21/18 03/22/18 03/22/18 18:59 06:59 18:59 Intake Total 2213 660 300 Output Total 1500 1400 150 Balance 713 -740 150 Weight 161 lb Intake: IV Fluids 3 ABX - CEFAZOLIN 110 LR 2002 Oral 100 660 300 Output: Urine 1300 1400 150 [place] 200 Other: Estimated Void Medium # Voids 1 Laboratory Last Values Hgb 9.8 g/dl (12.0-16.0) L 03/22/18 05:30 Hct 28 % (35-47) L 03/22/18 05:30 Plt Count 217 10^3/ul (150-450) 03/22/18 05:30 MPV 8.0 um3 (7.4-10.4) 03/22/18 05:30 INR (Anticoag Therapy) 1.85 (0.77-1.02) H 03/22/18 05:30 Sodium 137 mmol/L (135-145) 03/21/18 05:18 Potassium 3.8 mmol/L (3.5-5.0) 03/21/18 05:18 Chloride 101 mmol/L (101-111) 03/21/18 05:18 Carbon Dioxide 32 mmol/L (22-32) 03/21/18 05:18 Anion Gap 4 mmol/L (2-11) 03/21/18 05:18 BUN 14 mg/dL (6-24) 03/21/18 05:18 Creatinine 0.53 mg/dL (0.51-0.95) 03/21/18 05:18 Est GFR ( Amer) 141.4 (>60) 03/21/18 05:18 Est GFR (Non-Af Amer) 116.9 (>60) 03/21/18 05:18 BUN/Creatinine Ratio 26.4 (8-20) H 03/21/18 05:18 Glucose 152 mg/dL (70-100) H 03/21/18 05:18 POC Glucose (mg/dL) 145 mg/dL (70-100) H 03/22/18 12:16 Calcium 8.1 mg/dL (8.6-10.3) L 03/21/18 05:18
[2018-03-22] MEDS: traMADol TAB* 50 MG PO PRN (15:39)
[2018-03-22] MEDS: Cyclobenzaprine TAB* 10 MG PO PRN (15:40)
[2018-03-22] MEDS ORDERED: Warfarin TAB(*) 4 MG PO ONE (17:00)
[2018-03-22] MEDS: Atorvastatin* 20 MG TAB PO SCH (18:00)
[2018-03-23] MEDS: oxyCODONE/Acetamin 5/325 MG* TAB PO PRN ×4 (01:34→18:21)
[2018-03-23] MEDS: oxyCODONE TAB* 5 MG TAB PO PRN ×4 (04:40→23:16)
[2018-03-23] MEDS: Acetaminophen TAB* 325 MG PO SCH ×3 (04:42→21:41)
[2018-03-23 06:15] LABS: Hematocrit 26 % (35-47); Hemoglobin 9.1 g/dl (12.0-16.0); Mean Platelet Volume 7.2 um3 (7.4-10.4); Platelet Count 212 10^3/ul (150-450)
[2018-03-23 06:22] LABS: INR 2.84 (0.77-1.02)
[2018-03-23] MEDS: Lisinopril TAB* 10 MG PO SCH (08:54)
[2018-03-23] MEDS: Insulin LISPRO* 1 UNITS UNIT SUBCUT SCH ×4 (08:54→21:25)
[2018-03-23] MEDS: Docusate CAP* 100 MG PO SCH ×2 (08:54→21:18)
[2018-03-23] MEDS: Magnesium Hydroxide LIQ* 30 ML UDC PO SCH ×2 (08:55→21:20)
[2018-03-23] MEDS: Metoprolol Tartrate TAB* 25 MG PO SCH ×2 (08:55→21:22)
--- NOTE | 2018-03-23 10:44 | PN ---
Subjective Date of Service: 03/23/18 Interval History: Pt resting comfortably. Just had physical therapy, so reports increased knee pain related to that (8/10), but also has received pain medication. When not moving and with pain medication, reports pain is 6/10. Pt reports thinking is "foggy" from mediation, but able to answer all questions appropriately. Denies shortness of breath, chest pain, palpitations, N/V/ Abdominal pain, numbess or tingling in extremities, headache, or dizziness. Constipation has resolved. Objective Active Medications: Acetaminophen (Tylenol Tab*) 975 mg PO Q8HR [facility] Last Admin: 03/23/18 04:42 Dose: Not Given Atorvastatin Calcium (Lipitor*) 20 mg PO QPM [facility] Last Admin: 03/22/18 18:00 Dose: 20 mg Bisacodyl (Dulcolax Supp*) 10 mg [place] DAILY PRN PRN Reason: constipation Cyclobenzaprine HCl (Flexeril Tab*) 10 mg PO TID PRN PRN Reason: SPASMS Last Admin: 03/22/18 15:40 Dose: 10 mg Dextrose (D50w Syringe 50 Ml*) 12.5 gm IV PUSH .FOR FS < 60 - SS PRN PRN Reason: FS < 60 Diphenhydramine HCl (Benadryl Po*) 25 mg PO Q6H PRN PRN Reason: itching Docusate Sodium (Colace Cap*) 100 mg PO BID [facility] Last Admin: 03/23/18 08:54 Dose: 100 mg Enoxaparin Sodium (Lovenox(*)) 40 mg SUBCUT Q24H [facility] Last Admin: 03/22/18 12:16 Dose: 40 mg Lactated Ringer's (Lactated Ringers 1000 Ml Bag*) 1,000 mls @ 100 mls/hr IV PER RATE [facility] Last Admin: 03/21/18 08:41 Dose: 100 mls/hr Insulin Human Lispro (Humalog*) 0 units SUBCUT ACHS [facility]; Protocol Last Admin: 03/23/18 08:54 Dose: Not Given Iodixanol (Visipaque* 320 (Contrast)) 72 ml IV ONCE [facility] Stop: 03/24/18 09:26 Last Admin: 03/22/18 09:28 Dose: 72 ml Lactulose (Lactulose*) 30 ml PO Q6H PRN PRN Reason: constipation Lisinopril (Prinivil Tab*) 10 mg PO QAM [facility] Last Admin: 03/23/18 08:54 Dose: 10 mg Magnesium Hydroxide (Milk Of Magnesia Liq*) 30 ml PO BID [facility] Last Admin: 03/23/18 08:55 Dose: Not Given Magnesium Hydroxide (Milk Of Magnesia Liq*) 30 ml PO Q6H PRN PRN Reason: constipation Metoprolol Tartrate (Lopressor Tab*) 12.5 mg PO BID [facility] Last Admin: 03/23/18 08:55 Dose: 12.5 mg Morphine Sulfate (Morphine Vial*) 2 mg IV Q2H PRN PRN Reason: PAIN - SEVERE Last Admin: 03/21/18 11:59 Dose: 2 mg Ondansetron HCl (Zofran Inj*) 4 mg IV Q6H PRN PRN Reason: nausea Last Admin: 03/21/18 09:09 Dose: 4 mg Ondansetron HCl (Zofran Tab*) 4 mg PO Q6H PRN PRN Reason: NAUSEA Oxycodone HCl (Roxycodone Tab*) 10 mg PO Q4H PRN PRN Reason: SEVERE PAIN Last Admin: 03/23/18 04:40 Dose: 10 mg Oxycodone/Acetaminophen (Percocet 5/325 Tab*) 1 tab PO Q4H PRN PRN Reason: PAIN Oxycodone/Acetaminophen (Percocet 5/325 Tab*) 2 tab PO Q4H PRN PRN Reason: PAIN Last Admin: 03/23/18 08:56 Dose: 2 tab Pharmacy Profile Note (Scopolamine Patch Remove*) 1 note PATCH OFF .AFTER 72 HOURS PRN PRN Reason: nausea Pharmacy Profile Note (Coumadin Daily Reminder*) 1 note FOLLOW UP 1700 [facility] Last Admin: 03/22/18 18:01 Dose: 1 note Polyethylene Glycol/Electrolytes (Miralax*) 17 gm PO DAILY PRN PRN Reason: Constipation Scopolamine (Transderm-Scop 1.5 Mg Patch*) 1 patch TRANSDERM Q72H PRN PRN Reason: nausea Tramadol HCl (Ultram*) 50 mg PO Q6H PRN PRN Reason: PAIN Last Admin: 03/22/18 15:39 Dose: 50 mg Vital Signs - 8 hr 03/23/18 03/23/1803/23/18 04:26 04:40 04:42 Temperature 99.8 F Pulse Rate 108 Respiratory 16 16 16 Rate Blood Pressure 110/59 (mmHg) O2 Sat by Pulse 97 Oximetry 03/23/18 03/23/18 03/23/18 07:16 08:00 08:56 Temperature 98.7 F Pulse Rate 109 Respiratory 17 18 Rate Blood Pressure 117/59 (mmHg) O2 Sat by Pulse 97 97 Oximetry Oxygen Devices in Use Now: None Eyes: No Scleral Icterus, PERRLA Ears/Nose/Mouth/Throat: NL Teeth, Lips, Gums, Clear Oropharnyx, Mucous Membranes Moist Neck: NL Appearance and Movements; NL JVP, Trachea Midline Respiratory: Symmetrical Chest Expansion and Respiratory Effort, Clear to Auscultation Cardiovascular: NL Sounds; No Murmurs; No JVD, No Edema, - - Tachycardic to low 100s. Regular rhythm Abdominal: NL Sounds; No Tenderness; No Distention Extremities: No Edema, No Clubbing, Cyanosis Skin: No Rash or Ulcers Neurological: Alert and Oriented x 3, NL Sensation, NL Muscle Strength and Tone , - - DP and PT pulses 2+. Warm and well perfused. Lines/Tubes/Other Access: Clean, Dry and Intact Peripheral IV Nutrition: Taking PO's Result Diagrams: 03/23/18 06:07 03/21/18 05:18 Assess/Plan/Problems-Billing Assessment: Ms Merida is a 63 year old female with a PMH HTN, DM, HLD s/p bilateral knee replacement with Dr. Fallon. POD 2. Hospitalist team consulting. - Patient Problems (1) History of total bilateral knee replacement Current Visit: Yes Status: Acute Code(s): Z96.653 - PRESENCE OF ARTIFICIAL KNEE JOINT, BILATERAL SNOMED Code(s): 2823889280542 Comment: - Plan per ortho, primary team - Continue pain control with PRN percocet, roxycodone, ultram or morophine - Continue bowel regimen - H/H stable. Continue trendin today - Anticoagulation with coumadin with lovenox bridge (2) Tachycardia Current Visit: Yes Status: Acute Code(s): R00.0 - TACHYCARDIA, UNSPECIFIED SNOMED Code(s): 2180004 Comment: - Pt has been tachcardic since her procedure, likely secondary to pain and volume loss (surgical + vomiting). Pt is taking PO and received multiple liters of fluid. HR peaked in 140s, but came back down to lower 100s with pain medication and fluids. EKG showed sinus tach. CTA was done to r/o PE. CTA did not show any evidence of PE. Added metoprolol 12.5mg BID for rate control yesterday. Rates have been 108 and 109 this morning. O2 has been titrated off and satting 97% on room air. Encouraged IS use and PO fluid intake. (3) Hypertension Current Visit: Yes Status: Acute Code(s): I10 - ESSENTIAL (PRIMARY) HYPERTENSION SNOMED Code(s): 75358100 Comment: - BP well controlled on lisinopril 10mg daily. SBP 100s-110s (4) Diabetes Current Visit: Yes Status: Acute Code(s): E11.9 - TYPE 2 DIABETES MELLITUS WITHOUT COMPLICATIONS SNOMED Code(s): 82411747 Comment: - Glucose < 180. Did not require insulin this AM. Continue sliding scale lispro. Can consider restarting home metformin. (5) DVT prophylaxis Current Visit: Yes Status: Acute Code(s): PNC0451 - SNOMED Code(s): 025307956 Comment: - Coumadin with lovenox bridge (6) Full code status Current Visit: Yes Status: Acute Code(s): Z78.9 - OTHER SPECIFIED HEALTH STATUS SNOMED Code(s): 626435866 Status and Disposition: Plan per primary team, ortho. Plan for discharge to home when medically stable.
[2018-03-23] MEDS ORDERED: Scopolamine PATCH Remove* 1 NOTE MISC PATCH OFF PRN (10:50)
--- NOTE | 2018-03-23 13:28 | PN ---
Progress Note - Progress Note Date of Service: 03/23/18 SOAP: Subjective: []Patient seen and examined OOB in chair. She feels very well without CP, SOB, dizziness, nausea, headache, abd pain, dysuria. Bilateral knee pain is well controlled at 3/10. She is nervous about going home today and had planned to go to [facility], but as a bed was not able ot be offered she would prefer to go home. She would like to stay today and reassess her readiness to go home tomorrow. Remains tachycardic and asymptomatic Objective: []General: Well appearing, NAD Bilateral dressings changed. Incisions are CDI without erythema or discharge. Thighs are soft. DF/PF intact. DP2+, sensation intact distally. Calves are supple and nontender without erythema, edema or palpable cords. Assessment: []Bilateral total knee arthroplasty tachycardia continued, asymptomatic. Plan: []WBAT PT/OT tachycardia: discussed again with medicine today, pain as the only identifiable cause at this time. CTA negative for PE. Continue metoprolol 12.5mg BID for rate control. Lovenox, Coumadin 2 mg today Vital Signs Temp 98.7 F 03/23/18 07:16 Pulse 109 03/23/18 07:16 Resp 18 03/23/18 10:55 BP 117/59 03/23/18 07:16 Pulse Ox 97 03/23/18 08:00 Intake & Output 03/22/18 03/23/18 03/23/18 18:59 06:59 18:59 Intake Total 300 850 420 Output Total 400 200 Balance -100 850 220 Weight 161 lb Intake: Oral 300 850 420 Output: Urine 400 200 Other: Estimated Void Medium Medium Date of Last Bowel 03/23/18 Movement # Bowel Movements 2 2 Estimated Stool Amount Large Large # Voids 1 0 Laboratory Last Values Hgb 9.1 g/dl (12.0-16.0) L 03/23/18 06:07 Hct 26 % (35-47) L 03/23/18 06:07 Plt Count 212 10^3/ul (150-450) 03/23/18 06:07 MPV 7.2 um3 (7.4-10.4) L 03/23/18 06:07 INR (Anticoag Therapy) 2.84 (0.77-1.02) H 03/23/18 06:07 Sodium 137 mmol/L (135-145) 03/21/18 05:18 Potassium 3.8 mmol/L (3.5-5.0) 03/21/18 05:18 Chloride 101 mmol/L (101-111) 03/21/18 05:18 Carbon Dioxide 32 mmol/L (22-32) 03/21/18 05:18 Anion Gap 4 mmol/L (2-11) 03/21/18 05:18 BUN 14 mg/dL (6-24) 03/21/18 05:18 Creatinine 0.53 mg/dL (0.51-0.95) 03/21/18 05:18 Est GFR ( Amer) 141.4 (>60) 03/21/18 05:18 Est GFR (Non-Af Amer) 116.9 (>60) 03/21/18 05:18 BUN/Creatinine Ratio 26.4 (8-20) H 03/21/18 05:18 Glucose 152 mg/dL (70-100) H 03/21/18 05:18 POC Glucose (mg/dL) 131 mg/dL (70-100) H 03/23/18 11:54 Calcium 8.1 mg/dL (8.6-10.3) L 03/21/18 05:18
[2018-03-23] MEDS: Enoxaparin(*) 40 MG/0.4 ML SYR SUBCUT SCH (13:32)
[2018-03-23 16:43] LABS: EGFR Non-African American 122.2 (>60)
[2018-03-23] MEDS ORDERED: Warfarin TAB(*) 2 MG PO ONE (17:00)
[2018-03-23] MEDS: Atorvastatin* 20 MG TAB PO SCH (18:26)
[2018-03-24] MEDS: oxyCODONE/Acetamin 5/325 MG* TAB PO PRN ×3 (03:11→14:46)
[2018-03-24] MEDS: Acetaminophen TAB* 325 MG PO SCH ×2 (05:15→13:53)
[2018-03-24 05:40] LABS: ABS Basophils 0 10^3/ul (0-0.2); ABS Eosinophils 0.2 10^3/ul (0-0.6); ABS Lymphocytes 1.5 10^3/ul (1.0-4.8); ABS Monocytes 0.8 10^3/ul (0-0.8); ABS Neutrophils 6.3 10^3/ul (1.5-7.7); ABS Nucleated RBC 0 10^3/ul; Eosinophil % 2.8 % (0-6); Hematocrit 25 % (35-47); Hemoglobin 8.8 g/dl (12.0-16.0); Lymphocyte % 17.2 % (25-47); Mean Corpuscular HGB Conc 36 g/dl (31-36); Mean Corpuscular Hemoglobin 31 pg (27-31); Mean Corpuscular Volume 88 fL (80-97); Mean Platelet Volume 7.1 um3 (7.4-10.4); Nucleated Red Blood Cells % 0; Platelet Count 268 10^3/ul (150-450); Red Blood Count 2.81 10^6/ul (4.00-5.40); Red Cell Distribution Width 13 % (10.5-15); White Blood Count 8.9 10^3/ul (3.5-10.8)
[2018-03-24 05:45] LABS: INR 2.76 (0.77-1.02)
[2018-03-24] MEDS: oxyCODONE TAB* 5 MG TAB PO PRN ×3 (06:14→17:47)
[2018-03-24] MEDS: Magnesium Hydroxide LIQ* 30 ML UDC PO SCH (07:50)
[2018-03-24] MEDS: Metoprolol Tartrate TAB* 25 MG PO SCH (08:17)
[2018-03-24] MEDS: Lisinopril TAB* 10 MG PO SCH (08:17)
[2018-03-24] MEDS: Docusate CAP* 100 MG PO SCH (08:17)
[2018-03-24] MEDS: Insulin LISPRO* 1 UNITS UNIT SUBCUT SCH ×3 (08:18→17:20)
--- NOTE | 2018-03-24 11:39 | PN ---
Subjective Date of Service: 03/24/18 Objective Active Medications: Acetaminophen (Tylenol Tab*) 975 mg PO Q8HR [facility] Last Admin: 03/24/18 05:15 Dose: Not Given Atorvastatin Calcium (Lipitor*) 20 mg PO QPM [facility] Last Admin: 03/23/18 18:26 Dose: 20 mg Bisacodyl (Dulcolax Supp*) 10 mg [place] DAILY PRN PRN Reason: constipation Cyclobenzaprine HCl (Flexeril Tab*) 10 mg PO TID PRN PRN Reason: SPASMS Last Admin: 03/22/18 15:40 Dose: 10 mg Dextrose (D50w Syringe 50 Ml*) 12.5 gm IV PUSH .FOR FS < 60 - SS PRN PRN Reason: FS < 60 Diphenhydramine HCl (Benadryl Po*) 25 mg PO Q6H PRN PRN Reason: itching Docusate Sodium (Colace Cap*) 100 mg PO BID [facility] Last Admin: 03/24/18 08:17 Dose: 100 mg Enoxaparin Sodium (Lovenox(*)) 40 mg SUBCUT Q24H [facility] Last Admin: 03/23/18 13:32 Dose: 40 mg Lactated Ringer's (Lactated Ringers 1000 Ml Bag*) 1,000 mls @ 100 mls/hr IV PER RATE [facility] Last Admin: 03/21/18 08:41 Dose: 100 mls/hr Insulin Human Lispro (Humalog*) 0 units SUBCUT [facility]; Protocol Last Admin: 03/24/18 08:18 Dose: 2 units Lactulose (Lactulose*) 30 ml PO Q6H PRN PRN Reason: constipation Lisinopril (Prinivil Tab*) 10 mg PO QAM [facility] Last Admin: 03/24/18 08:17 Dose: 10 mg Magnesium Hydroxide (Milk Of Magnesia Liq*) 30 ml PO BID [facility] Last Admin: 03/24/18 07:50 Dose: Not Given Magnesium Hydroxide (Milk Of Magnesia Liq*) 30 ml PO Q6H PRN PRN Reason: constipation Metoprolol Tartrate (Lopressor Tab*) 12.5 mg PO BID [facility] Last Admin: 03/24/18 08:17 Dose: 12.5 mg Morphine Sulfate (Morphine Vial*) 2 mg IV Q2H PRN PRN Reason: PAIN - SEVERE Last Admin: 03/21/18 11:59 Dose: 2 mg Ondansetron HCl (Zofran Inj*) 4 mg IV Q6H PRN PRN Reason: nausea Last Admin: 03/21/18 09:09 Dose: 4 mg Ondansetron HCl (Zofran Tab*) 4 mg PO Q6H PRN PRN Reason: NAUSEA Oxycodone HCl (Roxycodone Tab*) 10 mg PO Q4H PRN PRN Reason: SEVERE PAIN Last Admin: 03/24/18 11:05 Dose: 10 mg Oxycodone/Acetaminophen (Percocet 5/325 Tab*) 1 tab PO Q4H PRN PRN Reason: PAIN Oxycodone/Acetaminophen (Percocet 5/325 Tab*) 2 tab PO Q4H PRN PRN Reason: PAIN Last Admin: 03/24/18 08:17 Dose: 2 tab Pharmacy Profile Note (Scopolamine Patch Remove*) 1 note PATCH OFF .AFTER 72 HOURS PRN PRN Reason: nausea Pharmacy Profile Note (Coumadin Daily Reminder*) 1 note FOLLOW UP 1700 [facility] Last Admin: 03/23/18 18:24 Dose: 1 note Polyethylene Glycol/Electrolytes (Miralax*) 17 gm PO DAILY PRN PRN Reason: Constipation Scopolamine (Transderm-Scop 1.5 Mg Patch*) 1 patch TRANSDERM Q72H PRN PRN Reason: nausea Tramadol HCl (Ultram*) 50 mg PO Q6H PRN PRN Reason: PAIN Last Admin: 03/22/18 15:39 Dose: 50 mg Vital Signs - 8 hr 03/24/18 03/24/18 03/24/18 05:43 06:14 07:27 Temperature 98.2 F Pulse Rate 108 Respiratory 16 16 16 Rate Blood Pressure 127/62 (mmHg) O2 Sat by Pulse 95 Oximetry 03/24/18 03/24/18 03/24/18 07:49 08:17 11:05 Temperature Pulse Rate Respiratory 16 16 18 Rate Blood Pressure (mmHg) O2 Sat by Pulse Oximetry 03/24/18 11:06 Temperature Pulse Rate Respiratory 18 Rate Blood Pressure (mmHg) O2 Sat by Pulse Oximetry Oxygen Devices in Use Now: Nasal Cannula Result Diagrams: 03/24/18 05:24 03/23/18 16:13 Assess/Plan/Problems-Billing Assessment: Ms Merida is a 63 year old female with a PMH HTN, DM, HLD s/p bilateral knee replacement with Dr. Fallon. POD 2. Hospitalist team consulting. - Patient Problems (1) History of total bilateral knee replacement Current Visit: Yes Status: Acute Code(s): Z96.653 - PRESENCE OF ARTIFICIAL KNEE JOINT, BILATERAL SNOMED Code(s): 4190571275443 Comment: - Plan per ortho, primary team - Continue pain control with PRN percocet, roxycodone, ultram or morophine - Continue bowel regimen - Anticoagulation with coumadin with lovenox bridge (2) Tachycardia Current Visit: Yes Status: Acute Code(s): R00.0 - TACHYCARDIA, UNSPECIFIED SNOMED Code(s): 7875536 Comment: - Pt has been tachcardic since her procedure, likely secondary to pain and volume loss (surgical + vomiting). Pt is taking PO and received multiple liters of fluid. HR peaked in 140s, but came back down to lower 100s with pain medication and fluids. EKG showed sinus tach. CTA was done to r/o PE. CTA did not show any evidence of PE. Added metoprolol 12.5mg BID for rate control yesterday. Rates have been 108 and 109 this morning. O2 has been titrated off and satting 97% on room air. Encouraged IS use and PO fluid intake. (3) Anemia Current Visit: Yes Status: Acute Code(s): D64.9 - ANEMIA, UNSPECIFIED SNOMED Code(s): 775392281 (4) Hypertension Current Visit: Yes Status: Acute Code(s): I10 - ESSENTIAL (PRIMARY) HYPERTENSION SNOMED Code(s): 24679231 Comment: - BP well controlled on lisinopril 10mg daily. SBP 100s-110s (5) Diabetes Current Visit: Yes Status: Acute Code(s): E11.9 - TYPE 2 DIABETES MELLITUS WITHOUT COMPLICATIONS SNOMED Code(s): 79886472 Comment: - Glucose < 180. Did not require insulin this AM. Continue sliding scale lispro. Can consider restarting home metformin. (6) DVT prophylaxis Current Visit: Yes Status: Acute Code(s): IIL0797 - SNOMED Code(s): 468383966 Comment: - Coumadin with lovenox bridge (7) Full code status Current Visit: Yes Status: Acute Code(s): Z78.9 - OTHER SPECIFIED HEALTH STATUS SNOMED Code(s): 526636742 Status and Disposition: Plan per primary team, ortho. Plan for discharge to home when medically stable.
--- NOTE | 2018-03-24 12:19 | PN ---
Progress Note - Progress Note Date of Service: 03/24/18 SOAP: Subjective: []Patient seen OOB in chair continues to do well with therapy. Medicine is still concerned about tachycardia although she remains asymptomatic. Medicine would like to start her on iron, check some additional labs and transfuse 1 unit PRBC prior to discharge home later today. Patient is in agreement of this plan and does hope to go home later this afternoon. Objective: [] Vital Signs Temp 98.2 F 03/24/18 07:27 Pulse 108 03/24/18 07:27 Resp 18 03/24/18 11:06 BP 127/62 03/24/18 07:27 Pulse Ox 95 03/24/18 07:27 Intake & Output 03/23/18 03/24/18 03/24/18 18:59 06:59 18:59 Intake Total 630 2410 Output Total 500 100 500 Balance 130 2310 -500 Intake: Oral 630 2410 Output: Urine 500 100 500 Other: Estimated Void Large Date of Last Bowel 03/23/18 Movement # Bowel Movements 2 3 Estimated Stool Amount Large Medium # Voids 1 Laboratory Results - last 24 hr 03/23/18 03/23/18 03/23/18 16:13 17:13 21:25 WBC RBC Hgb Hct MCV MCH MCHC RDW Plt Count MPV Neut % (Auto) Lymph % (Auto) Harding % (Auto) Eos % (Auto) Baso % (Auto) Absolute Neuts (auto) Absolute Lymphs (auto) Absolute Monos (auto) Absolute Eos (auto) Absolute Basos (auto) Absolute Nucleated RBC Nucleated RBC % INR (Anticoag Therapy) Sodium 136 Potassium 3.8 Chloride 98 L Carbon Dioxide 32 Anion Gap 6 BUN 16 Creatinine 0.51 Est GFR ( Amer) 147.9 Est GFR (Non-Af Amer) 122.2 BUN/Creatinine Ratio 31.4 H Glucose 129 H POC Glucose (mg/dL) 129 H 128 H Calcium 8.6 Magnesium 1.9 Iron TIBC % Saturation Unsat Iron Binding Transferrin Ferritin TSH Cancelled Blood Type Antibody Screen Crossmatch 03/24/18 03/24/18 03/24/18 05:24 05:24 05:24 WBC 8.9 RBC 2.81 L Hgb 8.8 L Hct 25 L MCV 88 MCH 31 MCHC 36 RDW 13 Plt Count 268 MPV 7.1 L Neut % (Auto) 70.5 Lymph % (Auto) 17.2 L Harding % (Auto) 9.1 H Eos % (Auto) 2.8 Baso % (Auto) 0.4 Absolute Neuts (auto) 6.3 Absolute Lymphs (auto) 1.5 Absolute Monos (auto) 0.8 Absolute Eos (auto) 0.2 Absolute Basos (auto) 0 Absolute Nucleated RBC 0 Nucleated RBC % 0 INR (Anticoag Therapy) 2.76 H Sodium Potassium Chloride Carbon Dioxide Anion Gap BUN Creatinine Est GFR ( Amer) Est GFR (Non-Af Amer) BUN/Creatinine Ratio Glucose POC Glucose (mg/dL) Calcium Magnesium Iron TIBC % Saturation Unsat Iron Binding Transferrin Ferritin TSH Blood Type O Positive Antibody Screen Negative Crossmatch See Detail 03/24/18 03/24/18 03/24/18 08:00 10:24 10:24 WBC RBC Hgb Hct MCV MCH MCHC RDW Plt Count MPV Neut % (Auto) Lymph % (Auto) Harding % (Auto) Eos % (Auto) Baso % (Auto) Absolute Neuts (auto) Absolute Lymphs (auto) Absolute Monos (auto) Absolute Eos (auto) Absolute Basos (auto) Absolute Nucleated RBC Nucleated RBC % INR (Anticoag Therapy) Sodium Potassium Chloride Carbon Dioxide Anion Gap BUN Creatinine Est GFR ( Amer) Est GFR (Non-Af Amer) BUN/Creatinine Ratio Glucose POC Glucose (mg/dL) 132 H Calcium Magnesium Iron 27 L TIBC 283 % Saturation 10 L Unsat Iron Binding 256 Transferrin 202 L Ferritin 258.6 TSH 2.10 Blood Type Antibody Screen Crossmatch Bilateral knee incisions healing without redness or drainage calves are NT and soft B/L +DF/PF bilateral LEs +DP pulses BLE Assessment: []s/p Bilateral total knee arthroplasty POD #3 Asymptomatic tachycardia Plan: []PT/OT WBAT BLE 1 Unit PRBC ordered by medicine today Coumadin for DVT prophylaxis: hold today INR 2.72, Lovenox discontinued Anticipate discharge home later today Follow up with Dr. Fallon as scheduled 10-14 days Follow up with PCP
--- NOTE | 2018-03-24 13:20 | PN ---
Subjective Date of Service: 03/24/18 Interval History: Pt is resting comfortably in chair. Reports pain is well controlled on current regimen. Denies shortness of breath, chest pain, N/V, numbness or tingling in extremities. Constipation has resolved. Objective Active Medications: Acetaminophen (Tylenol Tab*) 975 mg PO Q8HR [facility] Last Admin: 03/24/18 05:15 Dose: Not Given Atorvastatin Calcium (Lipitor*) 20 mg PO QPM [facility] Last Admin: 03/23/18 18:26 Dose: 20 mg Bisacodyl (Dulcolax Supp*) 10 mg PA DAILY PRN PRN Reason: constipation Cyclobenzaprine HCl (Flexeril Tab*) 10 mg PO TID PRN PRN Reason: SPASMS Last Admin: 03/22/18 15:40 Dose: 10 mg Dextrose (D50w Syringe 50 Ml*) 12.5 gm IV PUSH .FOR FS < 60 - SS PRN PRN Reason: FS < 60 Diphenhydramine HCl (Benadryl Po*) 25 mg PO Q6H PRN PRN Reason: itching Docusate Sodium (Colace Cap*) 100 mg PO BID [facility] Last Admin: 03/24/18 08:17 Dose: 100 mg Lactated Ringer's (Lactated Ringers 1000 Ml Bag*) 1,000 mls @ 100 mls/hr IV PER RATE [facility] Last Admin: 03/21/18 08:41 Dose: 100 mls/hr Insulin Human Lispro (Humalog*) 0 units SUBCUT [facility]; Protocol Last Admin: 03/24/18 08:18 Dose: 2 units Lactulose (Lactulose*) 30 ml PO Q6H PRN PRN Reason: constipation Lisinopril (Prinivil Tab*) 10 mg PO QAM [facility] Last Admin: 03/24/18 08:17 Dose: 10 mg Magnesium Hydroxide (Milk Of Magnesia Liq*) 30 ml PO BID [facility] Last Admin: 03/24/18 07:50 Dose: Not Given Magnesium Hydroxide (Milk Of Magnesia Liq*) 30 ml PO Q6H PRN PRN Reason: constipation Metoprolol Tartrate (Lopressor Tab*) 12.5 mg PO BID [facility] Last Admin: 03/24/18 08:17 Dose: 12.5 mg Morphine Sulfate (Morphine Vial*) 2 mg IV Q2H PRN PRN Reason: PAIN - SEVERE Last Admin: 03/21/18 11:59 Dose: 2 mg Ondansetron HCl (Zofran Inj*) 4 mg IV Q6H PRN PRN Reason: nausea Last Admin: 03/21/18 09:09 Dose: 4 mg Ondansetron HCl (Zofran Tab*) 4 mg PO Q6H PRN PRN Reason: NAUSEA Oxycodone HCl (Roxycodone Tab*) 10 mg PO Q4H PRN PRN Reason: SEVERE PAIN Last Admin: 03/24/18 11:05 Dose: 10 mg Oxycodone/Acetaminophen (Percocet 5/325 Tab*) 1 tab PO Q4H PRN PRN Reason: PAIN Oxycodone/Acetaminophen (Percocet 5/325 Tab*) 2 tab PO Q4H PRN PRN Reason: PAIN Last Admin: 03/24/18 08:17 Dose: 2 tab Pharmacy Profile Note (Scopolamine Patch Remove*) 1 note PATCH OFF .AFTER 72 HOURS PRN PRN Reason: nausea Pharmacy Profile Note (Coumadin Daily Reminder*) 1 note FOLLOW UP 1700 [address] Last Admin: 03/23/18 18:24 Dose: 1 note Polyethylene Glycol/Electrolytes (Miralax*) 17 gm PO DAILY PRN PRN Reason: Constipation Scopolamine (Transderm-Scop 1.5 Mg Patch*) 1 patch TRANSDERM Q72H PRN PRN Reason: nausea Tramadol HCl (Ultram*) 50 mg PO Q6H PRN PRN Reason: PAIN Last Admin: 03/22/18 15:39 Dose: 50 mg Vital Signs - 8 hr 03/24/18 03/24/18 03/24/18 05:43 06:14 07:27 Temperature 98.2 F Pulse Rate 108 Respiratory 16 16 16 Rate Blood Pressure 127/62 (mmHg) O2 Sat by Pulse 95 Oximetry 03/24/18 03/24/18 03/24/18 07:49 08:17 11:05 Temperature Pulse Rate Respiratory 16 16 18 Rate Blood Pressure (mmHg) O2 Sat by Pulse Oximetry 03/24/18 11:06 Temperature Pulse Rate Respiratory 18 Rate Blood Pressure (mmHg) O2 Sat by Pulse Oximetry Oxygen Devices in Use Now: None Eyes: No Scleral Icterus, PERRLA Ears/Nose/Mouth/Throat: NL Teeth, Lips, Gums, Mucous Membranes Moist Neck: NL Appearance and Movements; NL JVP, Trachea Midline Respiratory: Symmetrical Chest Expansion and Respiratory Effort, Clear to Auscultation Cardiovascular: NL Sounds; No Murmurs; No JVD, RRR, No Edema Abdominal: NL Sounds; No Tenderness; No Distention Extremities: No Edema, No Clubbing, Cyanosis Skin: No Rash or Ulcers, No Nodules or Sclerosis Neurological: Alert and Oriented x 3, NL Sensation, NL Muscle Strength and Tone Lines/Tubes/Other Access: Clean, Dry and Intact Peripheral IV Result Diagrams: 03/24/18 05:24 03/23/18 16:13 Assess/Plan/Problems-Billing Assessment: Ms Merida is a 63 year old female with a PMH HTN, DM, HLD s/p bilateral knee replacement with Dr. Fallon. Hospitalist team consulting. - Patient Problems (1) History of total bilateral knee replacement Current Visit: Yes Status: Acute Code(s): Z96.653 - PRESENCE OF ARTIFICIAL KNEE JOINT, BILATERAL SNOMED Code(s): 9461400809396 Comment: - Plan per ortho, primary team - Continue pain control with PRN percocet, roxycodone, ultram or morophine - Continue bowel regimen - Anticoagulation with coumadin with lovenox bridge (2) Tachycardia Current Visit: Yes Status: Acute Code(s): R00.0 - TACHYCARDIA, UNSPECIFIED SNOMED Code(s): 9921126 Comment: - Pt has been persistantly tachcardic since her procedure with peak HR in 140s. Range for past 24h is 104-121. Pain and volume loss are contibuting factors, however pain is now under control, and pt is taking in adequate PO hydration, and pt is still tachycardic. Pt's H/H today is 8.8/25 from prior to surgery, so this is likely a physiologic response to the bloodloss anemia. Will transfuse 1 unit RBCs to optimize her for discharge. Iron studies were run which showed iron 27 / TIBC 283 / 10% saturation / 256 unsat iron binding / Transferrin 202. Will add iron supplimentation with ferrous sulfate 325 mg BID. - Prior records indicate her baseline HR is 90s. - EKG showed sinus tach. CTA r/o PE - TSH WNL - Added metoprolol 12.5mg BID for rate control yesterday (3) Anemia Current Visit: Yes Status: Acute Code(s): D64.9 - ANEMIA, UNSPECIFIED SNOMED Code(s): 209540848 Comment: - Blood loss anemia, normocytic normochromic. - As above, pt's baseline H/H is 14.2/40, today 8.8/25. Will transfuse 1 unit RBC in the setting of persistent trachycardia. Will also add iron supplimentation with ferrous sulfate 325 mg BID as iron, %10 saturation and transferrin low. (4) Hypertension Current Visit: Yes Status: Acute Code(s): I10 - ESSENTIAL (PRIMARY) HYPERTENSION SNOMED Code(s): 21762101 Comment: - BP well controlled on lisinopril 10mg daily. SBP 120s today (5) Diabetes Current Visit: Yes Status: Acute Code(s): E11.9 - TYPE 2 DIABETES MELLITUS WITHOUT COMPLICATIONS SNOMED Code(s): 27294911 Comment: - Glucose < 180. Can restart home metformin on discharge (6) DVT prophylaxis Current Visit: Yes Status: Acute Code(s): HAZ8278 - SNOMED Code(s): 603057901 Comment: - Coumadin with lovenox bridge (7) Full code status Current Visit: Yes Status: Acute Code(s): Z78.9 - OTHER SPECIFIED HEALTH STATUS SNOMED Code(s): 175705805 Status and Disposition: Plan per primary team, ortho. Plan for discharge to home later today. Attending: Janelle Taylor
[2018-03-24] MEDS: Enoxaparin(*) 40 MG/0.4 ML SYR SUBCUT SCH (13:32)
[2018-03-24 14:57] VITALS: BP 132/63
[2018-03-24 16:03] LABS: Hematocrit 29 % (35-47); Hemoglobin 10.1 g/dl (12.0-16.0); Mean Corpuscular HGB Conc 35 g/dl (31-36); Mean Corpuscular Hemoglobin 31 pg (27-31); Mean Corpuscular Volume 89 fL (80-97); Mean Platelet Volume 7.2 um3 (7.4-10.4); Platelet Count 279 10^3/ul (150-450); Red Blood Count 3.21 10^6/ul (4.00-5.40); Red Cell Distribution Width 13 % (10.5-15); White Blood Count 8.4 10^3/ul (3.5-10.8)
--- NOTE | 2018-03-24 17:21 | PN ---
Progress Note - Progress Note Date of Service: 03/24/18 Note: Called by [facility] RN . Surgical service forgot to prescribe Percocet for pt post op and is unable to do so now. I STOP was checked. Last controlled substance prescribed was Ultram on 02/24/18-14 days supply. Will prescribe 30 tabs of Percocet to facilitate discharge
[2018-03-24] MEDS: Atorvastatin* 20 MG TAB PO SCH (17:47)
--- NOTE | 2018-03-24 18:37 | ECHO ---
Amended Report Patient: ARIANNE QUINONES [facility] Rec#: [id number] : 1955 Date: 03/24/2018 Age: 63y Height: 150 cm / 59.1 in Weight: 73.28 kg / 161.5 lbs Sex: F BSA: 1.69 Room#: [facility] Admit Date#: 03/20/2018 Type: Inpatient Referring: MIKIE FAYE Reading: Marbin Milligan MD Ward Helper: Janiya Sadler RDCS CC: Gael Lund MD Transthoracic Echocardiogram Indication: Persistant tachycardia. BP: 127/62 HR: 105 Rhythm: Tachycardia Findings History: HTN, DM, HLD, s/p bilateral knee arthroplasty. Technical Comments: The study quality is fair. Completed at 1500. Left Ventricle: The left ventricular chamber size is normal. There is no left ventricular hypertrophy. Global left ventricular wall motion and contractility are within normal limits. The left ventricle appears hyperdynamic. The estimated ejection fraction is greater than 65%. There is no consistent Doppler evidence of clinically significant diastolic dysfunction. Left Atrium: The left atrial chamber size is normal. Right Ventricle: Moderator Band present. The right ventricular cavity size is normal. The right ventricle wall thickness is mildly increased. The right ventricular global systolic function is normal. Right Atrium: The right atrial cavity size is normal. Aortic Valve: The aortic valve is trileaflet. The aortic valve leaflets are mildly thickened. There is a trace of aortic regurgitation. There is no evidence of aortic stenosis. Mitral Valve: The mitral valve leaflets are mildly thickened. There is a trace of mitral regurgitation. There is no evidence of mitral stenosis. Tricuspid Valve: The tricuspid valve leaflets are normal. There is mild tricuspid regurgitation. The right ventricular systolic pressure is estimated at 41 mmHg. There is evidence of mild pulmonary hypertension. There is no tricuspid stenosis. Pulmonic Valve: The pulmonic valve appears normal. There is a trace pulmonic regurgitation. There is no pulmonic stenosis. Pericardium: There is no significant pericardial effusion. A pericardial fat pad is visualized. Aorta: There is no dilatation of the ascending aorta. There is no dilatation of the aortic arch. The aortic root is normal in size. Pulmonary Artery: The main pulmonary artery appears normal. Venous: The inferior vena cava appears normal in size. There is a greater than 50% respiratory change in the inferior vena cava dimension. Summary: There was not any prior study for comparison. Conclusions The left ventricle appears hyperdynamic. The estimated ejection fraction is greater than 65%. The right ventricle wall thickness is mildly increased. There is a trace of mitral regurgitation. There is mild tricuspid regurgitation. The right ventricular systolic pressure is estimated at 41 mmHg. There is evidence of mild pulmonary hypertension. Cannot exclude a small PFO by color flow. Measurements Name Value Normal Range RVIDd (AP) 2D 3 cm (0.9 - 2.6) RVDdMajor (2D) 3.7 cm (2.2 - 4.4) RAd ISD 4CH 4.4 cm (3.4 - 4.9) RA (A4C)W 3.8 cm (2.9 - 4.6) IVSd (2D) 0.8 cm (0.6 - 1) LVPWd (2D) 0.8 cm (0.6 - 1) LVIDd (2D) 5.1 cm (3.6 - 5.4) LVIDs (2D) 3.3 cm - LV FS (2D) 36.2 % (25 - 45) Aortic Annulus 2 cm (1.4 - 2.6) Ao root diameter (2D) 3.4 cm (2.1 - 3.5) Ascending Ao 3 cm (2.1 - 3.4) Aortic arch 2.3 cm (1.8 - 3.4) LA dimension (AP) 2D 3.7 cm (2.3 - 3.8) LAd ISD 4CH 5 cm (2.9 - 5.3) LA ISD 4CH W 3.6 cm (2.5 - 4.5) Name Value Normal Range LA ESV BP (A/L) index 23 ml/m2 - Name Value Normal Range MV E-wave Vmax 0.7 m/sec - MV deceleration time 250 msec - MV A-wave Vmax 0.7 m/sec - MV E:A ratio 0.9 ratio - LV septal e' Vmax 0.1 m/sec - LV lateral e' Vmax 0.09 m/sec - LV E:e' septal ratio 7 ratio - LV E:e' lateral ratio 7.78 ratio - Name Value Normal Range AV Vmax 1.5 m/sec - AV VTI 25.6 cm - AV peak gradient 9 mmHg - AV mean gradient 4 mmHg - LVOT Vmax 1.2 m/sec - LVOT VTI 20.7 cm - LVOT peak gradient 6 mmHg - LVOT mean gradient 3 mmHg - TWAN Vmax 1.4 m/sec - Name Value Normal Range TR Vmax 3.1 m/sec - TR peak gradient 38 mmHg - RAP 3 mmHg - RVSP 41 mmHg - IVC diameter 2.08 cm - Name Value Normal Range PV Vmax 1 m/sec - PV peak gradient 4 mmHg -
[2018-03-24] MEDS ORDERED: Ferrous Sulfate TAB* 325 MG PO SCH (21:00)
--- NOTE | 2018-03-27 06:00 | DS ---
DISCHARGE SUMMARY: DATE OF ADMISSION: 03/20/18 DATE OF DISCHARGE: 03/24/18 ATTENDING PHYSICIAN: Dr. Kymberly Fallon.* (DICTATED BY STEPHIE BARBA) ADMISSION DIAGNOSIS: Osteoarthritis, bilateral knees. DISCHARGE DIAGNOSES: 1. Osteoarthritis, bilateral knees. 2. Asymptomatic tachycardia. SURGERY PERFORMED: Bilateral total knee arthroplasty. HOSPITAL COURSE: The patient is a 63-year-old female with complaints of bilateral knee pain secondary to end-stage osteoarthritis. She failed conservative management including physical therapy, cortisone injections, and elected to proceed with bilateral total knee arthroplasty. She was taken to the operative room under the care of Dr. Kymbelry Fallon on the date of 03/20/18 for the aforementioned procedures. She tolerated the procedures well and left the operating room in stable condition. Postoperatively, she had noted tachycardia that was asymptomatic throughout her entire hospital stay. She was followed closely by the medical team, underwent EKG and CTA chest. There was no evidence of pulmonary embolism found. No other cardiac abnormalities. She was placed on metoprolol 12.5 mg and with increased hydration and pain management her rates did improve to the low 100s. She remained asymptomatic with this tachycardia. She progressed slowly albeit satisfactorily with the physical therapy and occupational therapy goals. It was felt that 1 unit of packed red blood cells would be beneficial as she was trending slightly down and remained slightly tachycardiac. The packed red blood cells were ordered by the medical team as well as additional laboratory studies including total iron binding capacity, saturation, and transferrin levels. It was felt that she was medically stable for discharge to home on the date of 03/24/18. CONDITION ON DISCHARGE: She is afebrile, her pulse rate is 108, respiratory rate 16, O2 sats 95% on room air, blood pressure 127/62. Her INR is 2.72. PLAN: The patient to be discharged to home. She will hold Coumadin today and will resume Coumadin 2 mg on 03/25/18; Coumadin 2 mg, 03/26/18 ; with INR blood draw 03/27/18, with further dosages to follow. She has a prescription of Percocet and tramadol. She will follow up in the office as scheduled with Dr. Fallon in roughly 10 to 14 days. If she has any noted shortness of breath, chest pain, palpitations, she should report to the ED prior to scheduled followup. Call the office if any noted drainage, redness, increased swelling, calf pain in either lower extremity. All questions were answered and she will follow up as scheduled. STEPHIE BARBA [id number]/[facility] #: [id number] AYDEE
== END 2018-03-24 18:45 | disposition home health service (06) | DRG 302 ==
LOC: AA 03-20 05:47 → SSU 03-20 14:17
PROVIDERS: ADMIT Orthopaedic Surgery Adult Reconstructive Orthopaedic Surgery; ATTEND Orthopaedic Surgery Adult Reconstructive Orthopaedic Surgery
PROC: 0SRD069 Replacement of Left Knee Joint with Oxidized Zirconium on Polyethylene Synthetic Substitute, Cemented, Open Approach (ICD-10-PCS; 2018-03-20)
PROC: 0SRC069 Replacement of Right Knee Joint with Oxidized Zirconium on Polyethylene Synthetic Substitute, Cemented, Open Approach (ICD-10-PCS; 2018-03-20)
PROC: 30233N1 Transfusion of Nonautologous Red Blood Cells into Peripheral Vein, Percutaneous Approach (ICD-10-PCS; principal; 2018-03-24)
DX: M17.0 Bilateral primary osteoarthritis of knee (principal); D62 Acute posthemorrhagic anemia; I10 Essential (primary) hypertension; E78.5 Hyperlipidemia, unspecified; E11.9 Type 2 diabetes mellitus without complications; E78.00 Pure hypercholesterolemia, unspecified; M25.462 Effusion, left knee; M25.461 Effusion, right knee; E78.2 Mixed hyperlipidemia; R00.0 Tachycardia, unspecified; M25.762 Osteophyte, left knee; M25.761 Osteophyte, right knee; R11.2 Nausea with vomiting, unspecified; Z90.49 Acquired absence of other specified parts of digestive tract; Z82.49 Family history of ischemic heart disease and other diseases of the circulatory system; Z88.2 Allergy status to sulfonamides; Z83.3 Family history of diabetes mellitus; Z72.89 Other problems related to lifestyle; Z98.49 Cataract extraction status, unspecified eye; Q74.2 Other congenital malformations of lower limb(s), including pelvic girdle
CPT/HCPCS: 36415; 71275; 80048; 82728; 83540; 83550; 83735; 84443; 85014; 85018; 85025; 85027; 85049; 85610; 86850; 86900; 86901; 86922; 88305; 88311; 93005; 93306; 97530; A9270-GY; C1776; J0690; J1100; J1200; J1650; J2250; J2270; J2300; J2405; J2704; J2795; J3010; P9040; Q9967